=== PATIENT | female | born 1960 | race Caucasian/White ===

== ENCOUNTER 2017-06-28 13:55 | Emergency (ER) | payer SELFPAY ==
[2017-06-28] MEDS ORDERED: Adacel (T-DAP) 0.5 ML VIAL ONE (14:17)
--- NOTE | 2017-06-28 15:29 | CT ---
CT OF THE BRAIN WITHOUT CONTRAST: COMPARISON: 06/11/17. HISTORY: Laceration on the top of the head after falling down 5 stairs today at home. TECHNIQUE: Multiple contiguous axial images were obtained in a CT of the brain without contrast. FINDINGS: The brain is normal in morphology and attenuation without focal lesions or confluent areas of infarc tion. There is no evidence of hydrocephalus, intracranial hemorrhage, or extraaxial fluid collectio n. The calvarium and overlying soft tissues are unremarkable. The visualized paranasal sinuses and mas toid air cells are well aerated. IMPRESSION: No evidence of acute intracranial abnormality. POS: [facility]
== END 2017-06-28 15:10 | disposition home or self-care (01) ==
LOC: ERS 13:55
DX: S01.01XA Laceration without foreign body of scalp, initial encounter (principal); S80.12XA Contusion of left lower leg, initial encounter; F31.9 Bipolar disorder, unspecified; Z87.891 Personal history of nicotine dependence; Z79.899 Other long term (current) drug therapy; W10.9XXA Fall (on) (from) unspecified stairs and steps, initial encounter
CPT/HCPCS: 12001; 70450; 90471; 90715

== ENCOUNTER 2017-07-07 11:33 | Emergency (ER) | payer SELFPAY | END 2017-07-07 12:11 | disposition home or self-care (01) | LOC: ERS 11:33 | DX: S01.81XD Laceration without foreign body of other part of head, subsequent encounter (principal); F31.9 Bipolar disorder, unspecified; Z87.891 Personal history of nicotine dependence; Z79.899 Other long term (current) drug therapy; X58.XXXD Exposure to other specified factors, subsequent encounter ==

== ENCOUNTER 2019-03-18 08:32 | Outpatient (CLI) | payer OTHER ==
--- NOTE | 2019-03-18 09:31 | MRI ---
MRI cervical spine. HISTORY: Neck pain M54.2 Multiplanar multisequence noncontrast enhanced MRI images cervical spine obtained. C1-2: Unremarkable. C2-3: Unremarkable. C3-4: There is a broad-based disc osteophyte complex centrally compressing the thecal sac resulting i n mild lateral recess stenosis. There is moderate bilateral neural foraminal narrowing due to uncovertebral osteophyte hypertrophy. C4-5: Disc desiccation seen. There is a mild broad-based disc bulge resulting in mild central stenosi s. There is moderate severe right C4-5 and mild left C4-5 neural foraminal narrowing due to uncovertebral osteophyte hypertrophy. C5-6: Disc desiccation seen. There is broad-based disc osteophyte complex centrally compressing the t hecal sac resulting in moderate severe central and lateral recess stenosis. Moderate spinal cord compression seen. There is moderate severe left and moderate right-sided C5-6 neural foraminal narrow ing due to uncovertebral osteophyte hypertrophy. C6-7: Disc desiccation seen. There is a broad-based disc osteophyte complex compressing the thecal sa c resulting in moderate to severe degree of central and lateral recess stenosis. Minimal cord compression seen. There is a moderate severe bilateral neural foraminal narrowing seen. C7-T1: Unremarkable. IMPRESSION: multilevel mid and lower cervical spinal stenosis and neural foraminal narrowing as descr ibed above.
--- NOTE | 2019-03-18 09:45 | RAD ---
FOUR VIEWS LUMBAR SPINE: HISTORY: Lumbar radiculopathy. Low back pain with bilateral neuropathy. COMPARISON: None. TECHNIQUE: Weight-bearing AP, weight-bearing extension, weight-bearing flexion, and weight-bearing lateral views are submitted for interpretation. FINDINGS: There are 5 lumbar type vertebral bodies. Lumbar spine vertebral body height is maintained. There i s no fracture. In the neutral position, there is 6 mm of anterolisthesis of L4 upon L5. Upon flexion, there is 6 mm of anterolisthesis. Upon extension, there is 7 mm of anterolisthesis. In the neutral position, there is 5.5 mm of anterolisthesis of L5 upon S1. Upon flexion, there is 4.8 mm of anterolisthesis of L5 upon S1. Upon extension, there is 3.5 mm of anterolisthesis of L5 upon S1. Mild hypertrophic changes in the posterior elements at L4-L5 and at L5-S1. No spondylolysis. IMPRESSION: Grade 1 anterolisthesis of L4 upon L5 and L5 upon S1. Transcribed Date/Time: 03/18/2019 11:40 AM
--- NOTE | 2019-03-18 09:47 | RAD ---
4 views cervical spine. HISTORY: Neck pain. AP, lateral, flexion and extension views cervical spine obtained. Images demonstrate disc space height loss with anterior and posterior osteophytes at C5-6. Less sever e disease seen at C6-7. Findings compatible with changes of spondylosis. No evidence of antral retrolisthesis seen on flexion or extension views. IMPRESSION: C5-6 and C6-7 changes of spondylosis.
== END 2019-03-18 08:33 | disposition home or self-care (01) ==
LOC: BICMRI 08:32
PROVIDERS: ATTEND Neurological Surgery
DX: M54.2 Cervicalgia (principal); R25.1 Tremor, unspecified; M54.16 Radiculopathy, lumbar region; M47.812 Spondylosis without myelopathy or radiculopathy, cervical region; M48.02 Spinal stenosis, cervical region; M43.16 Spondylolisthesis, lumbar region; M43.17 Spondylolisthesis, lumbosacral region
CPT/HCPCS: 72050; 72110; 72141

== ENCOUNTER 2019-09-18 19:01 | Inpatient (IN) | payer MEDICARE ==
[2019-09-18] MEDS ORDERED: Ondansetron PF 4 MG/2 ML Vial ONE (19:17)
[2019-09-18] MEDS ORDERED: Morphine 4 MG/ML VIAL ONE (19:17)
[2019-09-18 19:47] LABS: Hemoglobin 12.9 g/dL (12.0-16.0); Mean Corpuscular HGB CONC 32.6 g/dL (32.0-36.0); Mean Corpuscular Hemoglobin 25.4 pg (27.0-31.0); Mean Corpuscular Volume 77.9 fL (78.0-98.0); Mean Platelet Volume 8.1 fL (7.4-10.4); Platelet Count 384 thou/uL (130-400); RBC Distribution Width 13.1 % (11.5-14.5); Red Blood Cell (RBC) Count 5.08 mill/uL (4.20-5.40); White Blood Cell (WBC) Count 16.8 thou/uL (4.8-10.8)
[2019-09-18 20:06] LABS: ALT (SGPT) 99 U/L (8-55); AST (SGOT) 130 U/L (5-34); Alkaline Phosphatase 214 U/L (40-110); Anion Gap 18 mmol/L (10-20); BUN (Urea Nitrogen) 14 mg/dL (9.8-20.1); Bilirubin, Total 0.6 mg/dL (0.2-1.2); Calc. Creatinine Clearance 0 mL/min (70-130); Calcium 9.7 mg/dL (7.8-10.44); Carbon Dioxide 23 mmol/L (22-29); Chloride 98 mmol/L (98-107); Estimated GFR-MDRD 73; Globulin 4.3 g/dL (2.4-3.5); Glucose 142 mg/dL (70-105); Lipase 8 U/L (8-78); Potassium 4.9 mmol/L (3.5-5.1); Protein, Total 8.3 g/dL (6.0-8.3); Sodium 134 mmol/L (136-145)
[2019-09-18 20:12] LABS: Band 9 % (5-11); Hypochromia SLIGHT = 6-15 cells (100X) (0-5/hpf); Lymphocytes 2 % (21-51); MDiff Complete? YES; Monocytes 4 % (0-10); Neutrophil 85 % (42-75); Platelet Morphology Comment Appears Adequate
[2019-09-18 21:39] LABS: Pregnancy Test - Urine (BHCG) Negative (Negative); Pregu Control Background? CLEAR/WHITE (CLR/WHITE); Pregu Control Bar Appear? YES (CONTROL BAR); Specific Gravity 1.036 (1.002-1.036)
[2019-09-18 21:42] LABS: Bacteria/HPF 4+ HPF (None Seen); Bilirubin Negative (Negative); Blood, Urine Negative (Negative); Clarity Turbid (Clear); Glucose, Urine (Dipstick) Normal (Negative); Leukocyte 500 Leu/uL (Negative); Mucous/LPF Rare LPF (<2+); Nitrite Negative (Negative); Protein, Urine (Dipstick) 300 mg/dL (Neg-Trace); RBC/HPF None Seen HPF (0-3); WBC/HPF 21-50 HPF (0-3)
--- NOTE | 2019-09-18 21:53 | CT ---
CT ABDOMEN AND PELVIS WITH CONTRAST: 09/18/19 INDICATION: Abdominal pain. Right lower quadrant pain. Nausea and vomiting. COMPARISON: No comparison studies. Lung bases clear. The liver is homogeneous with no mass. There is post cholecystectomy change. There is mild intra and extrahepatic biliary duct dilatation probably on the basis of cholecystectomy status. Spleen unremar kable. Postoperative changes are seen at the epigastric region involving stomach and lower esophagus. Patien t appears to be postcontrast bypass type procedure. There are fluid filled dilated loops of small bowel with dilated loops measuring up to 4.5 cm indicat ing small bowel obstructive process. There is mural thickening and luminal narrowing in what appears to represent the terminal ileum with inflammatory change seen at this location surrounding the terminal ileum. There is a mass-like densit y at this location which is not well delineated. The colon is decompressed. There is a defect in the left hemidiaphragm which is allowing colon and small bowel loops to herniate through this defect into the left chest. Aorta normal caliber. No adenopathy. IMPRESSION: 1. Significantly dilated fluid filled loops of small bowel. There is mural thickening and lumina l narrowing of the terminal ileum with inflammatory mass-like process at this location. 2. There is a defect in the left hemidiaphragm separate from the EG junction which results in he rniation of left colon and small bowel loops through this diaphragmatic hernia. 3. Postoperative changes involving the stomach with a probable gastric bypass type procedure. 4. Mild prominence of the intra and extrahepatic biliary ducts. Correlate with liver function te sts and bilirubin levels. POS: [facility]
[2019-09-18] MEDS ORDERED: Piperacillin/Tazobactam 4.5 GM VIAL ONE (22:13)
[2019-09-19 00:10] VITALS: BMI 36.2
[2019-09-19] MEDS ORDERED: Ondansetron PF 4 MG/2 ML Vial IVP PRN ×3 (00:55→18:09)
[2019-09-19] MEDS ORDERED: Acetaminophen 325 MG TAB PO PRN (00:55)
[2019-09-19] MEDS ORDERED: Ondansetron ODT 4 MG TAB SL PRN (00:55)
[2019-09-19] MEDS ORDERED: Ketorolac Tromethamine 30 MG/ML VIAL IVP PRN (03:15)
[2019-09-19] MEDS: Morphine 4 MG/ML VIAL SLOW IVP PRN ×2 (03:22→07:21)
[2019-09-19] MEDS: Sodium Chloride 0.9% 1,000 ML IV SCH ×4 (03:24→20:34)
[2019-09-19] MEDS ORDERED: Piperacillin/Tazobactam 4.5 GM in Sodium Chloride 0.9% 100 ML IVPB SCH (06:00)
[2019-09-19] MEDS ORDERED: FLU VACC QS2019-20(6MOS UP)/PF 60 MCG/0.5 ML SYRINGE IM ONE (09:00)
[2019-09-19] MEDS ORDERED: Dexamethasone 20 MG/5 ML VIAL ONE ×2 (10:36)
[2019-09-19] MEDS ORDERED: Lidocaine 1% PF 5 ML VIAL ONE (10:36)
[2019-09-19] MEDS ORDERED: Succinylcholine Chloride 20 MG/ML 10 ml SYRINGE FS ONE (10:36)
[2019-09-19] MEDS ORDERED: Rocuronium Bromide 10 MG/ML (10ML VIAL) ONE (10:36)
[2019-09-19] MEDS ORDERED: Ondansetron PF 4 MG/2 ML Vial ONE ×2 (10:36→18:11)
[2019-09-19] MEDS ORDERED: PROPOFOL 200 MG/20 ML VIAL ONE (10:36)
[2019-09-19] MEDS ORDERED: PHENYLEPHRINE-NS 100 MCG/ML 10 ML SYRINGE ONE (10:36)
[2019-09-19] MEDS ORDERED: Glycopyrrolate 0.2 MG/ML 5 ML SYRINGE ONE (10:36)
[2019-09-19] MEDS ORDERED: Bupivacaine HCl 0.5%/Epinephrine 1:200,000/PF 30 ml Vial ONE (10:36)
[2019-09-19] MEDS ORDERED: Morphine 2 MG/ML SYRINGE SLOW IVP PRN (11:24)
[2019-09-19] MEDS ORDERED: hydrALAZINE 20 MG/ML VIAL SLOW IVP PRN (11:24)
[2019-09-19] MEDS ORDERED: Morphine 4 MG/ML VIAL SLOW IVP PRN (11:24)
[2019-09-19] MEDS ORDERED: Lorazepam 2 MG/ML VIAL SLOW IVP PRN (11:24)
[2019-09-19] MEDS ORDERED: Ondansetron ODT 4 MG TAB PO PRN (11:24)
[2019-09-19] MEDS ORDERED: Sodium Chloride 0.9% 1,000 ML IV SCH (11:30)
[2019-09-19] MEDS ORDERED: Ketorolac Tromethamine 30 MG/ML VIAL IVP SCH (11:30)
[2019-09-19] MEDS ORDERED: Acetaminophen 1,000 MG in Premix Bag 1 BAG IVPB SCH ×2 (11:30→18:00)
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
[2019-09-19] MEDS ORDERED: Fentanyl 100 MCG/2 ML VIAL ONE ×2 (12:56→18:23)
[2019-09-19] MEDS ORDERED: Midazolam HCl 2 mg/ml Syrup 5 ml UD Cup ONE (12:56)
[2019-09-19] MEDS ORDERED: Midazolam HCl 2 mg/2 ml Vial ONE (12:57)
[2019-09-19] MEDS ORDERED: Dexamethasone 4 mg/ml Vial ONE (12:57)
[2019-09-19] MEDS ORDERED: Lidocaine 1% w/Epinephrine 1:100K 20 ML VIAL ONE (13:56)
[2019-09-19] MEDS ORDERED: Bupivacaine PF 0.5% 30 ML VIAL ONE (13:56)
[2019-09-19] MEDS ORDERED: Fentanyl 250 MCG/5 ML VIAL ONE (13:59)
[2019-09-19] MEDS ORDERED: Ketorolac Tromethamine 30 MG/ML VIAL ONE (13:59)
[2019-09-19] MEDS ORDERED: Piperacillin/Tazobactam 3.375 GM VIAL ONE (14:37)
[2019-09-19] MEDS: Multivitamins, Adult 10 ML, Folic Acid 1 MG, Thiamine HCl 100 MG in Dextrose 5 %-0.45 %... IV SCH (16:32)
[2019-09-19] MEDS: Ketorolac Tromethamine 30 MG/ML VIAL IVP SCH ×3 (16:33→23:49)
[2019-09-19] MEDS: Thiamine HCl 200 MG/2 ML VIAL SLOW IVP SCH (16:34)
[2019-09-19] MEDS ORDERED: Ondansetron HCl/PF 4 MG/2 ML Vial IVP PRN (17:38)
[2019-09-19] MEDS ORDERED: PACU-Morphine 4MG/ML VIAL SLOW IVP PRN (17:38)
[2019-09-19] MEDS ORDERED: Promethazine HCl 25 MG/ML VIAL IM PRN ×2 (17:38→18:09)
[2019-09-19] MEDS ORDERED: Morphine Sulfate 2 MG/ML SYRINGE SLOW IVP PRN (17:38)
[2019-09-19] MEDS ORDERED: Promethazine HCl 25 MG/ML VIAL SLOW IVP PRN (17:38)
[2019-09-19] MEDS ORDERED: HYDROmorphone 2 MG/ML VIAL SLOW IVP PRN (17:38)
[2019-09-19] MEDS ORDERED: Dextrose 5% in Water 1,000 ML IV PRN (18:01)
[2019-09-19] MEDS ORDERED: Insulin Regular 300 UNITS/3 ML VIAL SC PRN (18:01)
[2019-09-19] MEDS ORDERED: Dextrose 50% Abboject 50 ML SYRINGE SLOW IVP PRN (18:01)
[2019-09-19] MEDS ORDERED: fentaNYL Citrate/PF 2,000 MCG in Sodium Chloride 0.9% 60 ML IV PRN (18:09)
[2019-09-19] MEDS ORDERED: Naloxone HCl 0.4 mg/ml Vial IV PRN (18:09)
[2019-09-19] MEDS ORDERED: diphenhydrAMINE 50 MG/ML VIAL IM PRN (18:09)
[2019-09-19] MEDS ORDERED: diphenhydrAMINE 25 MG CAP PO PRN (18:09)
[2019-09-19] MEDS ORDERED: diphenhydrAMINE 50 MG/ML VIAL IVP PRN (18:09)
[2019-09-19] MEDS ORDERED: Zolpidem Tartrate 5 MG TAB PO PRN (18:09)
[2019-09-19] MEDS ORDERED: Communication Order-Pharmacy FS SCH (18:15)
--- NOTE | 2019-09-19 18:25 | RAD ---
PORTABLE CHEST: 09/19/19 HISTORY: Respiratory distress. COMPARISON: A CT of the abdomen which was performed yesterday. There is elevation of the left hemidiaphragm. Heart size is slightly enlarged. Right lung is clear. T here is somewhat increased perihilar lung markings on the left. I am not certain of what portion of t his is chronic in nature. IMPRESSION: Elevated left hemidiaphragm with some mild increased lung markings more in the perihilar distributio n on the left. This could represent some infiltrative change and could be chronic in nature. Follow-u p chest films would be suggested. POS: [facility]
[2019-09-19] MEDS: Piperacillin/Tazobactam 4.5 GM in Sodium Chloride 0.9% 100 ML IVPB SCH ×2 (19:00→23:58)
[2019-09-19] MEDS: Famotidine/PF 20 mg/2ml Vial SLOW IVP SCH (20:36)
[2019-09-19] MEDS: Acetaminophen 1,000 MG in Premix Bag 1 BAG IVPB SCH (23:51)
--- NOTE | 2019-09-19 23:51 | OP ---
DATE OF PROCEDURE: 09/19/2019 PREOPERATIVE DIAGNOSES: Bariatric surgery status, history of Stephanie-en-Y gastric bypass, history of open cholecystectomy. Small bowel obstruction with terminal ileum inflammatory phlegmon without drainable abscess, left diaphragmatic hernia, chronic. POSTOPERATIVE DIAGNOSES: Bariatric surgery status, history of Stephanie-en-Y gastric bypass, history of open cholecystectomy. Small bowel obstruction with terminal ileum inflammatory phlegmon without drainable abscess, left diaphragmatic hernia, chronic; with pericecal abscess. PROCEDURE: Laparoscopy, converted to laparotomy with adhesiolysis and right colectomy, and drainage of abscess and primary anastomosis, ileocolic, transverse; abdominal washout; #19 Gold JAZMYNE drain exiting in left lower quadrant trocar site (laparoscopy initially attempted, but converted into laparotomy). visualized the left diaphragmatic defect, I could palpate that but colon would not decompress due to thoracic adhesions, thus this portion will be left to later. ANESTHESIA: General anesthesia and TAP block. DESCRIPTION OF PROCEDURE: The patient was taken to the operating room where under general anesthesia, [place]ak catheter was placed. Abdomen was prepared with ChloraPrep and draped in routine fashion. Left lateral subcostal incision was made. Pneumoperitoneum to 15 mmHg was obtained with a Veress needle, replaced with a 5 port, laparoscope inserted. There were some filmy adhesions that I was able to negotiate around in the midline lower abdomen and was free of adhesions. Left lateral mid abdominal incision was made and left lower quadrant lateral incision was made and 5 port was placed. The laparoscope was moved to the left lower quadrant port site. The bowel was too distended to get any information, but it was appreciated she had a right lower quadrant mass effect in the area of the cecum and terminal ileum. I then tried to evaluate the left upper quadrant, but could not adequately evaluate this due to adhesions from prior surgery as she had a gastric bypass and a postoperative leak and a 6 to 8-week hospitalization 12 years ago. Colon was not dilated. Conversion to midline laparotomy undertaken from the mid upper abdomen to below the umbilicus, carried down the skin, subcutaneous tissue, midline fascia. The patient was morbidly obese with a thick fatty tissue layer. Midline fascia entered. I was then able to palpate the right lower quadrant mass in the area of the cecum. The bowel was run from the jejunojejunostomy from a Stephanie-en-Y gastric bypass proximally and the biliary limb and Stephanie limb were normal. Evaluation was carried out distally and bowel was otherwise normal except in the terminal ileum. Adhesions were taken down. The right colon was mobilized initially beginning inferiorly near the terminal ileum, then working towards the hepatic flexure and the right colon, mobilizing it . There was an inflammatory rind in the pericecal area and dissecting this, there was some clear yellow fluid that was evacuated and under this, thick yellow purulent material evacuated, cultured. Cecum dissected free, mobilized, there was inflammatory pericecal reaction. There was stool running out of the cecum, probably where the patient had had a ruptured appendicitis. Right colectomy undertaken, divided by dividing the terminal ileum and the proximal transverse colon with a JOSEPH stapler. Mesentery was taken down with the LigaSure and right colic vessels divided between clamps, ligated with 2-0 silk ties, colon resected, submitted to Pathology. Ileocolonic anastomosis performed with 2 fires of the JOSEPH stapler, creating anastomosis and closing the defect. The mesenteric defect was closed with 3-0 silk interrupted [id number] sutures. Abdominal cavity was thoroughly irrigated with saline solution. A drain was placed exiting the left lower quadrant port site, and secured with 3-0 nylon suture. Drain looped down the pelvis into the right pelvis where the abscess was. This had been evacuated. Small bowel was run, noted to be normal otherwise as previously stated. I then made an attempt to look in the left upper quadrant. I could feel the diaphragmatic defect far posteriorly high in the dome, but could not visualize it well. With some dissection and LigaSure traction, I was able to free adhesions in this area, but could not reduce the hernia as it was chronic and probably adherent within the thoracic cavity and will probably require a thoracic approach to reduce this and repair the defect. There was no evidence of colonic obstruction, so these efforts were abandoned. Sponge, instrument, and needle counts were correct. Irrigation evacuated. I then attempted to place Seprafilm on the left upper quadrant subdiaphragmatic area and between the viscera and the abdominal wall. There was not any significant omentum to be placed. Midline fascia was closed with continuous suture of #1 PDS from either end and then skin and subcutaneous tissues were irrigated and skin approximated with edna and MATY wound suction device applied. Drain was secured with 3-0 nylon suture and sterile dressing applied. The patient tolerated the procedure well. Job ID: [id number]
[2019-09-20] MEDS: Sodium Chloride 0.9% 1,000 ML IV SCH ×4 (00:05→18:15)
--- NOTE | 2019-09-20 00:14 | PRG ---
DATE OF SERVICE: 09/19/2019 SUBJECTIVE: The patient was seen this evening, lying in bed, and asleep. Trauma is following the patient this week and for Dr. Graff. She is postoperative day 2 and was admitted for an obstructive ileal mass. Nursing reported no acute events. OBJECTIVE: VITAL SIGNS: Temperature 98.6, pulse 80, respirations 16, oxygen saturation 97% on room air, blood pressure 107/67. GENERAL: Well-appearing middle-aged female, sitting up in bed, asleep, with no signs of acute distress. PULMONARY: Equal chest rise and fall. No signs of acute respiratory distress. ASSESSMENT: 1. Postop day 2 for obstructive ileal mass. 2. Diaphragmatic hernia, stable. 3. History of gastric bypass 12 years ago, depression, anxiety, and neuropathy. PLAN: Continue current n.p.o. status. Continue pain control. Anesthesiology has been consulted for pain management. Continue IV fluids. The patient has urine culture, demonstrating gram-negative rods. She is currently on Zosyn. We will continue those antibiotics at this time and follow up sensitivities. We are pending the results of an abdominal abscess culture. Continue walking program. Job ID: [id number] [facility]
[2019-09-20 05:15] LABS: #Lymphocytes 0.6 thou/uL (1.20-3.40); #Monocytes 0.6 thou/uL (0.11-0.59); #Neutrophils 10.1 thou/uL (1.40-6.50); %Basophils 0.3 % (0.0-1.0); %Lymphocytes 5.1 % (21.0-51.0); %Monocytes 5.7 % (0.0-10.0); %Neutrophils 88.9 % (42.0-75.0); Hemoglobin 10.2 g/dL (12.0-16.0); Mean Corpuscular Hemoglobin 25.7 pg (27.0-31.0); Mean Corpuscular Volume 80.1 fL (78.0-98.0); Mean Platelet Volume 7.5 fL (7.4-10.4); Platelet Count 292 thou/uL (130-400); RBC Distribution Width 12.9 % (11.5-14.5); Red Blood Cell (RBC) Count 3.98 mill/uL (4.20-5.40); White Blood Cell (WBC) Count 11.3 thou/uL (4.8-10.8)
[2019-09-20 05:33] LABS: ALT (SGPT) 155 U/L (8-55); AST (SGOT) 106 U/L (5-34); Albumin 2.9 g/dL (3.5-5.0); Alkaline Phosphatase 156 U/L (40-110); Anion Gap 10 mmol/L (10-20); BUN (Urea Nitrogen) 12 mg/dL (9.8-20.1); Bilirubin, Total 0.5 mg/dL (0.2-1.2); Calc. Creatinine Clearance 139 mL/min (70-130); Calcium 7.6 mg/dL (7.8-10.44); Carbon Dioxide 24 mmol/L (22-29); Chloride 110 mmol/L (98-107); Estimated GFR-MDRD 89; Globulin 2.5 g/dL (2.4-3.5); Glucose 136 mg/dL (70-105); Magnesium 1.7 mg/dL (1.6-2.6); Potassium 4.7 mmol/L (3.5-5.1); Protein, Total 5.4 g/dL (6.0-8.3); Sodium 139 mmol/L (136-145)
[2019-09-20 05:35] LABS: Hemoglobin A1c 5.3 % (4.0-6.0)
[2019-09-20 05:43] LABS: Phosphorus 3.5 mg/dL (2.3-4.7)
[2019-09-20] MEDS: Ketorolac Tromethamine 30 MG/ML VIAL IVP SCH ×3 (05:43→18:09)
[2019-09-20] MEDS: Acetaminophen 1,000 MG in Premix Bag 1 BAG IVPB SCH ×3 (05:46→18:09)
[2019-09-20] MEDS: Piperacillin/Tazobactam 4.5 GM in Sodium Chloride 0.9% 100 ML IVPB SCH ×3 (05:49→18:44)
[2019-09-20] MEDS: Famotidine/PF 20 mg/2ml Vial SLOW IVP SCH ×2 (09:01→22:00)
[2019-09-20] MEDS: Thiamine HCl 200 MG/2 ML VIAL SLOW IVP SCH (12:47)
--- NOTE | 2019-09-20 13:39 | PRG ---
DATE OF SERVICE: 09/20/2019 SUBJECTIVE: The patient remains on the surgical floor, awake, alert in hospital bed. The patient is postop day #1 status post laparoscopy converted to laparotomy, adhesiolysis, colectomy, drainage of abscess and primary anastomosis. The patient also had an abdominal washout and a left lower quadrant JAZMYNE drain placed. The patient reports that her pain is well controlled at this time. The patient is not passing any flatus and has not had a bowel movement. The patient continues to have a fentanyl TREE THINNER pump. The patient is n.p.o. with maintenance IV fluids. The patient is requesting her gabapentin be restarted as she is having tremors. OBJECTIVE: VITAL SIGNS: Temperature 98.3, pulse 84, respirations 16, SpO2 of 95% on room air, blood pressure 107/80. GENERAL: Well-appearing, middle-aged female, sitting up in bed, moderate tremors, no acute distress. PULMONARY: Equal chest rise and fall, no respiratory distress. Respirations even and unlabored. ABDOMEN: Soft, nontender, nondistended, abdominal dressing clean, dry, and intact, left JAZMYNE drain with 160 mL output overnight. The patient does have a MATY wound suction device in place. ASSESSMENT: 1. Postop day #1 status post obstructive ileal mass. 2. Diaphragmatic hernia, stable. 3. History of gastric bypass 12 years ago. 4. Depression, anxiety, neuropathy. PLAN: Continue supportive care. Continue n.p.o. status except for medications and sips of water. We will restart the patient's home gabapentin. We will continue the patient's IV antibiotics. We will continue to have patient ambulate frequently. The patient is pending return of bowel function. The patient was examined by Dr. Lynch during morning rounds. Job ID: [id number]
[2019-09-20] MEDS: Gabapentin 300 MG CAP PO SCH ×2 (13:44→22:03)
[2019-09-20] MEDS ORDERED: Sodium Chloride 0.9% 500 ML IV SCH (16:00)
[2019-09-20] MEDS: Multivitamins, Adult 10 ML, Folic Acid 1 MG, Thiamine HCl 100 MG in Dextrose 5 %-0.45 %... IV SCH ×2 (18:15→18:43)
--- NOTE | 2019-09-20 22:02 | PRG ---
DATE OF SERVICE: 09/20/2019 SUBJECTIVE: The patient was seen this evening, resting comfortably, and asleep by the time of my evaluation. Nursing reported no acute events. OBJECTIVE: VITAL SIGNS: Temperature 97.7, pulse 68, respirations 16, oxygen saturation 94% on room air, and blood pressure 95/65. GENERAL: Well-appearing middle-aged female, lying in bed with no signs of acute distress. PULMONARY: Equal chest rise and fall. No signs of acute respiratory distress. ASSESSMENT: 1. Postop day #1, status post open laparotomy, adhesiolysis, colectomy, drainage of abdominal abscess with primary anastomosis, and abdominal washout due to obstructive ileal mass. 2. Diaphragmatic hernia, stable. 3. Urinary tract infection, Escherichia coli. 4. History of gastric bypass 12 years ago, depression, anxiety, and neuropathy. PLAN: Continue to encourage the patient to ambulate and waiting for return of bowel function. Continue n.p.o. continue normal saline at 150 an hour. Continue fentanyl TRAFFIC ENGINEERING TECHNICIAN and Zosyn. We have restarted all of her home medications. Job ID: [id number]
[2019-09-21] MEDS: Ketorolac Tromethamine 30 MG/ML VIAL IVP SCH ×5 (00:12→23:11)
[2019-09-21] MEDS: Piperacillin/Tazobactam 4.5 GM in Sodium Chloride 0.9% 100 ML IVPB SCH ×5 (00:13→23:11)
[2019-09-21] MEDS: Sodium Chloride 0.9% 1,000 ML IV SCH ×3 (03:04→16:41)
[2019-09-21] MEDS: Gabapentin 300 MG CAP PO SCH ×3 (05:45→22:53)
[2019-09-21 06:25] LABS: Anion Gap 12 mmol/L (10-20); BUN (Urea Nitrogen) 13 mg/dL (9.8-20.1); Calc. Creatinine Clearance 137 mL/min (70-130); Calcium 7.9 mg/dL (7.8-10.44); Carbon Dioxide 23 mmol/L (22-29); Chloride 111 mmol/L (98-107); Estimated GFR-MDRD 87; Glucose 96 mg/dL (70-105); Phosphorus 2.5 mg/dL (2.3-4.7); Sodium 142 mmol/L (136-145)
[2019-09-21 07:24] LABS: Band 13 % (5-11); Hemoglobin 9.3 g/dL (12.0-16.0); Lymphocytes 20 % (21-51); MDiff Complete? YES; Mean Corpuscular HGB CONC 31.1 g/dL (32.0-36.0); Mean Corpuscular Hemoglobin 25.1 pg (27.0-31.0); Mean Corpuscular Volume 80.6 fL (78.0-98.0); Mean Platelet Volume 7.7 fL (7.4-10.4); Monocytes 3 % (0-10); Neutrophil 64 % (42-75); Platelet Count 275 thou/uL (130-400); RBC Distribution Width 12.9 % (11.5-14.5); Red Blood Cell (RBC) Count 3.69 mill/uL (4.20-5.40); White Blood Cell (WBC) Count 9.6 thou/uL (4.8-10.8)
[2019-09-21] MEDS: Aripiprazole 10 MG TAB PO SCH (09:38)
[2019-09-21] MEDS: FLUoxetine HCl 10 MG CAP PO SCH (09:38)
[2019-09-21] MEDS: Famotidine/PF 20 mg/2ml Vial SLOW IVP SCH ×2 (09:39→22:54)
[2019-09-21] MEDS ORDERED: Sodium Chloride 0.9% 500 ML IV SCH ×2 (10:00→16:15)
[2019-09-21] MEDS ORDERED: Acetaminophen 500 MG TAB PO SCH (11:30)
[2019-09-21] MEDS: Thiamine HCl 200 MG/2 ML VIAL SLOW IVP SCH (13:21)
--- NOTE | 2019-09-21 16:24 | PRG ---
DATE OF SERVICE: 09/21/2019 This is Elsa Sands NP dictating a report for Dr. Lynch. SUBJECTIVE: The patient remains on the surgical floor, awake, alert, in no distress. The patient is postop day #2, status post laparoscopy converted into a laparotomy adhesiolysis, colectomy, drainage of abscess, and primary anastomosis. The patient has had an abdominal washout and left lower quadrant JAZMYNE drain placed. The patient's pain is well controlled. The patient still is not passing any flatus or having any bowel movements. The patient's fentanyl ORDER CALLER pump continues. The patient remains n.p.o. with ice chips and sips of water with medications. The patient remains on IV fluids, maintenance IV fluids. The patient has had low urinary output. OBJECTIVE: VITAL SIGNS: Temperature 97.6, pulse 72, respirations 18, SpO2 of 96% on room air, and blood pressure 90/60. GENERAL: Middle-aged female, lying in hospital bed, PICC line currently being placed, moderate tremors, no respiratory distress. PULMONARY: Equal chest rise and fall, no respiratory distress, respirations are even, nonlabored. ABDOMEN: Soft, nontender, nondistended. Abdominal dressing is clean, dry, and intact. Left JAZMYNE drain with 190 mL output overnight. EXTREMITIES: Moves all extremities. Tremors in all extremities, which are chronic. LABORATORY DATA: WBC 9.6, RBC 3.69, hemoglobin 9.3, hematocrit 29.8, platelets 275, and 13 bands. Sodium 142, potassium 4.0, chloride 111, BUN 13, creatinine 0.69, estimated GFR 87, glucose 96, calcium 7.9, phosphorus 2.5, and magnesium 2.0. DIAGNOSTICS: There are no new diagnostics to review today. ASSESSMENT: 1. Postop day #2, status post obstructive ileal mass. 2. Diaphragmatic hernia, stable. 3. History of gastric bypass, 12 years ago. 4. History of depression, anxiety, neuropathy, and tremors. PLAN: Continue supportive care. Continue n.p.o. status except for sips of water with medications and ice chips until patient has return of bowel function. We will continue IV antibiotics. We will give the patient a normal saline bolus as the patient appears to be dry with decreased urine output. We will have patient ambulate more frequently. The patient was examined by Dr. Ohaju during morning rounds. The patient's plan was discussed with the patient who agrees. Job ID: [id number]
[2019-09-21] MEDS: Multivitamins, Adult 10 ML, Folic Acid 1 MG, Thiamine HCl 100 MG in Dextrose 5 %-0.45 %... IV SCH (18:06)
--- NOTE | 2019-09-22 01:05 | PRG ---
DATE OF SERVICE: 09/21/2019 SUBJECTIVE: The patient was seen this evening, sitting up in bed with no signs of acute distress. She reported her pain is well controlled and she had no acute events. She is still n.p.o. OBJECTIVE: VITAL SIGNS: Temperature 98.1, pulse 76, respirations 14, oxygen saturation 92% on room air, and blood pressure 87/57. GENERAL: Well-appearing middle-aged female, sitting up in bed with no signs of acute distress. PULMONARY: Equal chest rise and fall. No signs of acute respiratory distress. ASSESSMENT: 1. Postoperative day #3 status post adhesiolysis, colectomy, drainage of abscess and primary anastomosis due to obstructive ileal mass. 2. Diaphragmatic hernia, stable. 3. Urinary tract infection. 4. History of gastric bypass 12 years ago, depression, anxiety, and neuropathy. PLAN: Continue n.p.o. Continue current antibiotics. Continue physical therapy. We are waiting for return of bowel function. Job ID: [id number]
[2019-09-22 05:50] LABS: #Eosinphils 0.3 thou/uL (0.0-0.7); #Lymphocytes 1.8 thou/uL (1.20-3.40); #Monocytes 0.8 thou/uL (0.11-0.59); #Neutrophils 6.5 thou/uL (1.40-6.50); %Basophils 0.5 % (0.0-1.0); %Eosinophils 3.7 % (0.0-10.0); %Lymphocytes 19.2 % (21.0-51.0); %Monocytes 8.2 % (0.0-10.0); %Neutrophils 68.4 % (42.0-75.0); Hemoglobin 9.2 g/dL (12.0-16.0); Mean Corpuscular HGB CONC 30.8 g/dL (32.0-36.0); Mean Corpuscular Hemoglobin 24.8 pg (27.0-31.0); Mean Corpuscular Volume 80.6 fL (78.0-98.0); Mean Platelet Volume 7.6 fL (7.4-10.4); Platelet Count 296 thou/uL (130-400); RBC Distribution Width 13.3 % (11.5-14.5); Red Blood Cell (RBC) Count 3.69 mill/uL (4.20-5.40); White Blood Cell (WBC) Count 9.4 thou/uL (4.8-10.8)
[2019-09-22 06:03] LABS: Anion Gap 11 mmol/L (10-20); BUN (Urea Nitrogen) 11 mg/dL (9.8-20.1); Calc. Creatinine Clearance 148 mL/min (70-130); Calcium 7.8 mg/dL (7.8-10.44); Carbon Dioxide 23 mmol/L (22-29); Chloride 110 mmol/L (98-107); Estimated GFR-MDRD Greater than 90; Glucose 96 mg/dL (70-105); Magnesium 1.8 mg/dL (1.6-2.6); Phosphorus 2.7 mg/dL (2.3-4.7); Potassium 3.7 mmol/L (3.5-5.1); Sodium 140 mmol/L (136-145)
[2019-09-22] MEDS: Sodium Chloride 0.9% 1,000 ML IV SCH (06:57)
[2019-09-22] MEDS: Gabapentin 300 MG CAP PO SCH ×3 (06:57→21:05)
[2019-09-22] MEDS: Piperacillin/Tazobactam 4.5 GM in Sodium Chloride 0.9% 100 ML IVPB SCH ×4 (06:58→23:49)
[2019-09-22] MEDS: Ketorolac Tromethamine 30 MG/ML VIAL IVP SCH ×4 (06:58→23:48)
[2019-09-22] MEDS ORDERED: Multivitamins, Adult 10 ML, Folic Acid 1 MG, Thiamine HCl 100 MG in Dextrose 5 %-0.45 %... IV SCH ×2 (08:45→18:00)
[2019-09-22] MEDS: Aripiprazole 10 MG TAB PO SCH (09:04)
[2019-09-22] MEDS: Famotidine/PF 20 mg/2ml Vial SLOW IVP SCH (09:04)
[2019-09-22] MEDS: FLUoxetine HCl 10 MG CAP PO SCH (09:04)
[2019-09-22] MEDS ORDERED: Acetaminophen 500 MG TAB PO PRN (10:52)
[2019-09-22] MEDS ORDERED: traMADol HCl 50 MG TAB PO PRN (10:52)
--- NOTE | 2019-09-22 11:11 | PRG ---
DATE OF SERVICE: 09/22/2019 SUBJECTIVE: Ms. Vitale is doing well today. She has had a bowel movement, passed flatus. She is still n.p.o. OBJECTIVE: VITAL SIGNS: Temperature 97.9 degrees, pulse 78, blood pressure 107/68. LUNGS: Clear to auscultation. CARDIAC: Regular rate and rhythm without murmur or gallop. ABDOMEN: Soft, nontender. Bowel sounds present. Wound looks good. MATY wound suction device was removed. Dressings removed from her edna. Drain is serosanguineous. Output 24 hours, 190 mL. LABORATORY DATA: Laboratories today; white count 9, hemoglobin 9. Basic metabolic profile normal. Pathology pending. ASSESSMENT AND PLAN: Doing well after right colectomy for probably perforated appendicitis. Her drain will be removed. Her diet advanced. I anticipate discharge home tomorrow. Job ID: [id number]
[2019-09-22] MEDS: traMADol HCl 50 MG TAB PO PRN (12:58)
[2019-09-22] MEDS: Thiamine HCl 200 MG/2 ML VIAL SLOW IVP SCH (12:59)
[2019-09-23] MEDS: Ketorolac Tromethamine 30 MG/ML VIAL IVP SCH ×4 (05:22→23:01)
[2019-09-23] MEDS: Gabapentin 300 MG CAP PO SCH ×3 (05:23→21:18)
[2019-09-23] MEDS ORDERED: Sodium Chloride 0.9% 1,000 ML IV SCH (06:45)
[2019-09-23] MEDS: Amoxicillin/Potassium Clav 500 MG TAB PO SCH ×2 (08:34→21:18)
[2019-09-23] MEDS: FLUoxetine HCl 10 MG CAP PO SCH (08:34)
[2019-09-23] MEDS: Aripiprazole 10 MG TAB PO SCH (08:34)
[2019-09-23] MEDS: Polyethylene Glycol 3350 17 GM Packet PO SCH (08:35)
[2019-09-23] MEDS ORDERED: Sodium Chloride 0.9% 500 ML IV SCH (09:15)
--- NOTE | 2019-09-23 09:36 | PRG ---
DATE OF SERVICE: 09/23/2019 SUBJECTIVE: The patient reports having some nausea. She is not taking much p.o. She is passing flatus. OBJECTIVE: VITAL SIGNS: Temperature is 98, pulse 80, blood pressure 114/79. GENERAL: She is awake, alert. The incision looks good. There is no evidence of infection. : Urine output was little bit low, 250 yesterday, drainage is 250 as well. ASSESSMENT: Little bit dehydrated. PLAN: Normal saline fluid bolus. Encourage p.o. fluids. Home when she is able to tolerate p.o. well. Job ID: [id number]
[2019-09-23] MEDS: Thiamine HCl 200 MG/2 ML VIAL SLOW IVP SCH (11:49)
[2019-09-23] MEDS: traMADol HCl 50 MG TAB PO PRN (17:57)
[2019-09-24] MEDS: Ketorolac Tromethamine 30 MG/ML VIAL IVP SCH ×2 (05:02→12:35)
[2019-09-24] MEDS: Gabapentin 300 MG CAP PO SCH (05:02)
[2019-09-24 07:42] VITALS: TEMP 98.4
[2019-09-24] MEDS: traMADol HCl 50 MG TAB PO PRN (08:09)
[2019-09-24] MEDS: Aripiprazole 10 MG TAB PO SCH (08:10)
[2019-09-24] MEDS: Amoxicillin/Potassium Clav 500 MG TAB PO SCH (08:10)
[2019-09-24] MEDS: FLUoxetine HCl 10 MG CAP PO SCH (08:10)
[2019-09-24 11:27] VITALS: BP 132/83
[2019-09-24] MEDS: Polyethylene Glycol 3350 17 GM Packet PO SCH (12:35)
--- NOTE | 2019-09-25 08:06 | DIS ---
DATE OF ADMISSION: 09/18/2019 DATE OF DISCHARGE: 09/24/2019 DISCHARGE DIAGNOSES: Small bowel obstruction, terminal ileum inflammatory phlegmon, diaphragmatic hernia. PROCEDURES DURING ADMISSION: Lysis of adhesions, right hemicolectomy, drainage of abscess. HOSPITAL COURSE: The patient was admitted. An attempt was made at laparoscopy converted to open procedure. She was found to have an abscess. This was resected. Postoperatively, she has done well. She is afebrile. She is tolerating a regular diet. Bowels are functioning well. She is discharged home on Augmentin and Ultram. She will follow up with Dr. Graff in 1 week. Job ID: [id number]
== END 2019-09-24 13:31 | disposition home or self-care (01) | DRG 329 ==
LOC: ERS 19:01 → SJJU 22:20
PROVIDERS: ADMIT Specialist; ATTEND Specialist
PROC: 0DJD4ZZ Inspection of Lower Intestinal Tract, Percutaneous Endoscopic Approach (ICD-10-PCS; principal; 2019-09-19)
PROC: 0DTF0ZZ Resection of Right Large Intestine, Open Approach (ICD-10-PCS; 2019-09-19)
PROC: 0DNB0ZZ Release Ileum, Open Approach (ICD-10-PCS; 2019-09-19)
DX: K56.699 Other intestinal obstruction unspecified as to partial versus complete obstruction (principal); K35.33 Acute appendicitis with perforation, localized peritonitis, and gangrene, with abscess; N39.0 Urinary tract infection, site not specified; Z90.49 Acquired absence of other specified parts of digestive tract; Z88.8 Allergy status to other drugs, medicaments and biological substances; Z79.899 Other long term (current) drug therapy; F32.9 Major depressive disorder, single episode, unspecified; F41.9 Anxiety disorder, unspecified; E11.9 Type 2 diabetes mellitus without complications; G47.00 Insomnia, unspecified; K44.9 Diaphragmatic hernia without obstruction or gangrene; E66.01 Morbid (severe) obesity due to excess calories; Z68.36 Body mass index [BMI] 36.0-36.9, adult; Z98.84 Bariatric surgery status; Z53.31 Laparoscopic surgical procedure converted to open procedure; E86.0 Dehydration; B96.20 Unspecified Escherichia coli [E. coli] as the cause of diseases classified elsewhere
CPT/HCPCS: 36415; 36416; 71045; 74177; 80048; 80053; 81003; 81015; 81025; 83036; 83690; 83735; 84100; 85007; 85025; 85027; 87070; 87077; 87086; 87186; 87205; 88309; 94640; 96361; 96365; 96375; J0131; J0670; J1100; J1885; J2001; J2250; J2270; J2405; J2543; J2704; J3010; J3411; J3490; J7042; J7620; Q0162; S0020; S0028

== ENCOUNTER 2019-10-29 07:44 | Day surgery (SDC) | payer MEDICARE ==
[2019-10-28 10:04] VITALS: BMI 34.4
[2019-10-29] MEDS ORDERED: Lidocaine 2% w/Epinephrine 1:200K 20 ML VIAL ONE (08:07)
[2019-10-29] MEDS ORDERED: Bupivacaine PF 0.5% 30 ML VIAL ONE (08:07)
[2019-10-29] MEDS ORDERED: PROPOFOL 40 ML ONE (09:22)
[2019-10-29] MEDS ORDERED: Fentanyl 100 MCG/2 ML VIAL ONE (09:22)
[2019-10-29] MEDS ORDERED: Succinylcholine Chloride 20 MG/ML 10 ml SYRINGE FS ONE (09:44)
--- NOTE | 2019-10-29 10:27 | RAD ---
RADIOGRAPH CHEST 1 VIEW: DATE: 10/29/2019 HISTORY: Status post MediPort placement in 58-year-old female. COMPARISON: 09/19/2019 FINDINGS: There are no airspace densities, pulmonary edema, pneumothorax, or cardiomegaly. The lateral costophr enic angles are sharp. There is a new right subclavian vascular access port with distal tip of catheter overlying SVC. The left hemidiaphragm is less elevated now than previously, and the subsegme ntal atelectasis at the left base has cleared. Gas-filled portion of alimentary canal is again noted in the retrocardiac portion of the left medial thoracic base. IMPRESSION: 1. No acute cardiopulmonary findings. 2. Interval placement of right subclavian implantable vascular access port without pneumothorax. 3. Small left-sided diaphragmatic hernia.
--- NOTE | 2019-10-29 11:01 | OP ---
DATE OF PROCEDURE: 10/29/2019 PREOPERATIVE DIAGNOSES: 1. Colon cancer status post right colectomy. 2. Need of antineoplastic chemotherapy access. POSTOPERATIVE DIAGNOSES: 1. Colon cancer status post right colectomy. 2. Need of antineoplastic chemotherapy access. PROCEDURE PERFORMED: Right subclavian vein low-profile PowerPort. ANESTHESIA: Intravenous sedation and local with 0.5% Marcaine with epinephrine 30 mL mixed with 2% Xylocaine 20 mL. Fluoroscopy used. DESCRIPTION OF PROCEDURE: The patient was taken to the operating room, where in supine position under intravenous sedation, neck and chest were prepared with ChloraPrep and draped in routine fashion. Local anesthetic was infiltrated in the skin and subcutaneous tissue about the operative site. Right infraclavicular approach used to cannulate the right subclavian vein. J-wire threaded, trocar catheter removed. Skin site was enlarged sharply and subcutaneous pocket was created with blunt and sharp dissection to accommodate the MediPort. Dilator and Peel-Away sheath placed with J-wire into the superior vena cava. Dilator and J-wire were removed. Catheter placed with the Peel-Away sheath. Peel-Away sheath removed. The catheter tip was placed in optimal position in the superior vena cava, tailored to length, connected to the MediPort, secured in the pocket with 2 interrupted sutures of 3-0 Prolene. Subcutaneous tissue was approximated with 3-0 Monocryl, skin with subdermal 4-0 Monocryl and Coburn glue applied. The Romano needle accessed the MediPort, aspirating blood, flushing with heparinized saline solution. Final fluoroscopic images revealed good line and catheter placement. Job ID: [id number]
[2019-10-29] MEDS ORDERED: HYDROcodone/Acetaminophen 5/325 mg Tablet ONE (11:11)
--- NOTE | 2019-10-30 07:22 | HP ---
HISTORY OF PRESENT ILLNESS: Juany Herzog is a 58-year-old female, who reports having had a colonoscopy 2 years ago complete. She; however, presented to the hospital on September 18 in the emergency room for 3 to 4 days of abdominal pain, nausea, and vomiting. She had a white count of 16,000. 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 That day, she was 218 pounds and today, she weighs 213 pounds. She attributes her weight gain to poor eating habits. The patient had a laparoscopy converted to a midline incision and a right hemicolectomy. Pathology revealing a cecal adenocarcinoma with immunohistochemistry analysis expressing MLH2, MSH2, MSH6, and PMS2 with a pathogenic mutation KRAS gene (G12D). No mutations identified BRAF, HRAS, NRAS genes. Invasive adenocarcinoma 3 cm tumor, high-grade dysplasia in a TVA. All margins negative. Ten nodes negative. T3 N0 M0. CEA level not available. During that presentation, the patient was noted by imaging CAT scan to have a diaphragmatic hernia left. During the operation, a small posterior defect in the left hemidiaphragm was palpated. The colon was noted to be herniate into the left chest. She is post cholecystectomy. On the CAT scan, it was noted a defect in the left hemidiaphragm posteriorly allowing colon small bowel loops herniate through the defect in the left chest. During the operation, I could palpate this, but it was difficult to evaluate due to the posterior nature and her body habitus, but; however, she has been having normal bowel movements. Postoperatively, she has seen Alejandra Aponte recommended. She has been referred to Dr. Menjivar for future consideration of her left diaphragmatic hernia, which will probably require a left transthoracic approach for repair. This is because of the chronicity of the herniation. I have been asked by Dr. Carpio to place a MediPort. Postoperatively, the patient developed a small wound infection, which was drained. This is granulating and the wound is less than a third centimeter now. She has done a good job of wound care. The patient will look at her calender and call me when she is ready to schedule her MediPort. She will be seeing Dr. Wing Menjivar today for future consideration of left diaphragmatic hernia repair. After that, she will need a followup colonoscopy. PAST SURGICAL HISTORY: Cholecystectomy in 1996, gastric bypass in 2001, breast reduction in 2000, and laparotomy adhesiolysis right colectomy on 09/19/2019. PAST MEDICAL HISTORY: Morbid obesity, history of gastric bypass, anemia, anxiety, and depression. SOCIAL HISTORY: Tobacco abuse in the past, none currently. Alcohol, none. The patient is disabled. She is . REVIEW OF SYSTEMS: Noncontributory except as noted above. PHYSICAL EXAMINATION: VITAL SIGNS: 213 pounds and 65 inches. 125/83, 80, and 97.2 degrees. HEAD, EARS, EYES, NOSE, AND THROAT: Unremarkable. LUNGS: Clear to auscultation. CARDIAC: Regular rate and rhythm without murmur or gallop. ABDOMEN: Soft, obese, and nontender. Upper midline wound granulating, very shallow antibiotic Band-Aid applied. EXTREMITIES: Unremarkable. ASSESSMENT AND PLAN: 1. T3 N0 M0 cecal colon cancer status post right hemicolectomy without evidence of disease radiologically. CEA level not obtained perioperatively. She is seeing Dr. Carpio. We will plan to place a MediPort to facilitate chemotherapy. Plan this as an outpatient, IV sedation, local anesthesia, low-profile MediPort. She understands risks, benefits, and consents. 2. Left diaphragmatic hernia with herniated colon contents with an incomplete colonoscopy in the past. After completion of chemotherapy, consideration for left diaphragm repair by Dr. Menjivar transthoracic left approach considering the chronicity. She will be seeing Dr. Menjivar today. 3. Morbid obesity, history of gastric bypass. 4. Open wound abdomen, healing. Job ID: [id number]
== END 2019-10-29 11:25 | disposition home or self-care (01) ==
LOC: SDC 07:44
PROVIDERS: ATTEND Specialist
PROC: 02HV33Z Insertion of Infusion Device into Superior Vena Cava, Percutaneous Approach (ICD-10-PCS; principal; 2019-10-29)
PROC: B518ZZA Fluoroscopy of Superior Vena Cava, Guidance (ICD-10-PCS; 2019-10-29)
DX: C18.9 Malignant neoplasm of colon, unspecified (principal); E66.01 Morbid (severe) obesity due to excess calories; F41.9 Anxiety disorder, unspecified; F32.9 Major depressive disorder, single episode, unspecified; D64.9 Anemia, unspecified; Z68.31 Body mass index [BMI] 31.0-31.9, adult; Z87.891 Personal history of nicotine dependence; Z98.84 Bariatric surgery status
CPT/HCPCS: 71045; C1788; J0690; J1642; J2704; J3010; S0020

== ENCOUNTER 2020-03-23 09:32 | Outpatient (CLI) | payer MEDICARE, OTHER ==
--- NOTE | 2020-03-23 10:35 | ULT ---
EXAM: Right lower extremity venous ultrasound HISTORY: Right lower extremity pain and edema for 2 weeks COMPARISON: None TECHNIQUE: Multiplanar grayscale and color Doppler images were obtained in a right lower extremity ve nous ultrasound. Spectral analysis of the Doppler waveforms were performed. FINDINGS: The common femoral vein, profunda femoral vein, superficial femoral vein, and popliteal vei n are normal in appearance without visible thrombus. These vessels demonstrate normal compression, flow, and augmentation. The posterior tibial vein and greater saphenous vein are patent without evidence of thrombus. IMPRESSION: No evidence of DVT.
== END 2020-03-23 09:33 | disposition home or self-care (01) ==
LOC: ULT 09:32
PROVIDERS: ATTEND Internal Medicine Hematology & Oncology
DX: M79.604 Pain in right leg (principal); R60.0 Localized edema; C18.0 Malignant neoplasm of cecum; D50.8 Other iron deficiency anemias

== ENCOUNTER 2020-05-27 10:15 | Inpatient (IN) | payer MEDICARE, OTHER ==
[2020-06-01 14:14] VITALS: BMI 35.6
[2020-06-04] MEDS ORDERED: Fentanyl 100 MCG/2 ML VIAL ONE ×3 (06:16→14:07)
[2020-06-04] MEDS ORDERED: Midazolam HCl 2 mg/2 ml Vial ONE (06:16)
[2020-06-04] MEDS ORDERED: Fentanyl 250 MCG/5 ML VIAL ONE (06:46)
[2020-06-04] MEDS ORDERED: Naloxone HCl 0.4 mg/ml Vial IV PRN (07:30)
[2020-06-04] MEDS ORDERED: diphenhydrAMINE 25 MG CAP PO PRN (07:30)
[2020-06-04] MEDS ORDERED: Ondansetron PF 4 MG/2 ML Vial IVP PRN ×2 (07:30→13:03)
[2020-06-04] MEDS ORDERED: diphenhydrAMINE 50 MG/ML VIAL IM PRN (07:30)
[2020-06-04] MEDS ORDERED: Promethazine HCl 25 MG SUPP PR PRN (07:30)
[2020-06-04] MEDS ORDERED: Promethazine HCl 25 MG/ML VIAL IM PRN ×2 (07:30→11:59)
[2020-06-04] MEDS ORDERED: Bupivacaine 0.25% 10 ML VIAL EPIDURAL PRN (07:30)
[2020-06-04] MEDS ORDERED: Hydrocerin (Eucerin) Cream 120 gm Jar TOP PRN (07:30)
[2020-06-04] MEDS ORDERED: traMADol HCl 50 MG TAB PO PRN ×2 (07:30)
[2020-06-04] MEDS ORDERED: Naloxone HCl 0.4 mg/ml Vial IVP PRN (07:30)
[2020-06-04] MEDS ORDERED: diphenhydrAMINE 50 MG/ML VIAL IVP PRN (07:30)
[2020-06-04] MEDS ORDERED: Acetaminophen 500 MG TAB PO PRN (07:31)
[2020-06-04] MEDS ORDERED: Lidocaine 1.5% w/Epi 1:200K 30 ML VIAL (Epid Use) ONE (09:21)
[2020-06-04] MEDS ORDERED: Vecuronium 10 MG VIAL ONE (09:21)
[2020-06-04] MEDS ORDERED: PROPOFOL 200 MG/20 ML VIAL ONE (09:21)
[2020-06-04] MEDS ORDERED: Lidocaine 1% PF 5 ML VIAL ONE (09:21)
[2020-06-04] MEDS ORDERED: Ketorolac Tromethamine 30 MG/ML VIAL ONE ×2 (09:21→13:25)
[2020-06-04] MEDS ORDERED: Ondansetron PF 4 MG/2 ML Vial ONE ×2 (09:21→13:27)
[2020-06-04] MEDS ORDERED: Glycopyrrolate 0.2 MG/ML 5 ML SYRINGE ONE (09:21)
[2020-06-04] MEDS ORDERED: Promethazine HCl 25 MG/ML VIAL SLOW IVP PRN (11:59)
[2020-06-04] MEDS ORDERED: Ondansetron HCl/PF 4 MG/2 ML Vial IVP PRN (11:59)
--- NOTE | 2020-06-04 12:18 | RAD ---
EXAM: CHEST ONE VIEW HISTORY: Post thoracotomy. COMPARISON: 10/29/2019 FINDINGS: Right-sided Mediport catheter remains in place. Cardiac silhouette is magnified by projection but sta ble in size. Pulmonary vasculature is within normal limits. Linear mild patchy densities are seen at each lung base probably attributable to atelectasis. Radiopaque catheters overlie the left lung ba se and medial aspect left mid chest likely related to thoracostomy tubes. No pneumothorax is seen. Minimal pleural-based density is seen at the lateral left chest in addition to slight blunting of the left lateral costophrenic angle which may represent minimal left pleural effusion. Subcutaneous emphysema seen along the left chest. A tubular gas density overlies the mediastinum which likely repr esents gas within the esophagus. No other interval change. IMPRESSION: 1. Left-sided thoracostomy tubes in place without evidence of a pneumothorax. 2. Bibasilar atelectasis with suggestion of minimal left pleural effusion.
[2020-06-04] MEDS ORDERED: Promethazine HCl 25 MG/ML VIAL ONE (12:19)
--- NOTE | 2020-06-04 15:43 | OP ---
DATE OF PROCEDURE: 06/04/2020 PREOPERATIVE DIAGNOSIS: Left incarcerated diaphragmatic hernia. POSTOPERATIVE DIAGNOSIS: Left incarcerated diaphragmatic hernia. PROCEDURE PERFORMED: Left thoracotomy with reduction and primary repair of diaphragmatic hernia. ANESTHESIA: General endotracheal. ESTIMATED BLOOD LOSS: Less than 100. DRAINS: 24-Upper Sorbian Jose Manuel drains x2. SPECIMENS: None. DESCRIPTION OF PROCEDURE: After consent was obtained, the patient was brought to the operating room and placed in supine position on the operating table. Appropriate central line and monitors were placed and general endotracheal anesthesia was induced. The patient was placed in the right lateral decubitus position and joints were appropriately padded. SCDs were used. A long left thoracotomy incision was made. Dissection to the latissimus and serratus was obtained with electrocautery. Approximately the 5th interspace was entered and the ribs spread. The lung was adherent to the chest wall and diaphragm. I spent a long time taking down adhesions until I could identify the hernia posteromedially. Once the hernia was identified, the edges were then identified and the hernia sac taken down to allow for reduction of the hernia contents. Hernia contents were completely reduced back into the abdomen. The defect in the diaphragm was only about 3 cm long and easily reapproximated back together. There was a fibrous edge to the defect. The defect was reapproximated with interrupted 2-0 Prolene [id number] sutures. Three total were placed with good rehab position of the diaphragm under no tension. Two 24-Upper Sorbian Jose Manuel drains were placed. The chest was copiously irrigated. Lung was re-expanded and filled the chest nicely. Ribs were reapproximated with #1 Vicryl. Wounds were then irrigated, closed in layers and Dermabond applied to the skin. The patient was awakened, extubated, and transferred to the recovery room in stable condition. Needle, sponge, and instrument counts were all reported as correct at the end of the procedure. Job ID: [id number]
[2020-06-04] MEDS: Gabapentin 300 MG CAP PO SCH ×2 (18:00→20:58)
[2020-06-04] MEDS: Ketorolac Tromethamine 30 MG/ML VIAL IVP SCH ×2 (18:00→18:01)
[2020-06-04] MEDS: Sodium Chloride 0.9% 1,000 ML IV SCH ×2 (18:01→23:56)
[2020-06-04] MEDS: CEFAZOLIN 2 GM in Premix Bag 1 BAG IVPB SCH (18:03)
[2020-06-04] MEDS: HYDROcodone/Acetaminophen 5/325 mg Tablet PO PRN (21:00)
[2020-06-04] MEDS: fentaNYL Citrate/PF 500 MCG, Bupivacaine 10 ML in Sodium Chloride 0.9% 80 ML EPIDURAL SCH (22:00)
[2020-06-05] MEDS: CEFAZOLIN 2 GM in Premix Bag 1 BAG IVPB SCH ×2 (00:34→08:47)
[2020-06-05] MEDS: Ketorolac Tromethamine 30 MG/ML VIAL IVP SCH ×5 (00:35→23:52)
[2020-06-05 03:57] LABS: #Eosinphils 0.1 thou/uL (0.0-0.7); #Lymphocytes 1.5 thou/uL (1.20-3.40); #Monocytes 0.6 thou/uL (0.11-0.59); #Neutrophils 5.7 thou/uL (1.40-6.50); %Basophils 0.5 % (0.0-1.0); %Eosinophils 0.8 % (0.0-10.0); %Lymphocytes 18.4 % (21.0-51.0); %Monocytes 7.8 % (0.0-10.0); %Neutrophils 72.5 % (42.0-75.0); Hemoglobin 12.2 g/dL (12.0-16.0); Mean Corpuscular HGB CONC 31.4 g/dL (32.0-36.0); Mean Corpuscular Hemoglobin 29.5 pg (27.0-31.0); Mean Corpuscular Volume 93.9 fL (78.0-98.0); Mean Platelet Volume 7.8 fL (7.4-10.4); Platelet Count 237 thou/uL (130-400); RBC Distribution Width 13.4 % (11.5-14.5); Red Blood Cell (RBC) Count 4.14 mill/uL (4.20-5.40); White Blood Cell (WBC) Count 7.9 thou/uL (4.8-10.8)
[2020-06-05 04:22] LABS: Anion Gap 10 mmol/L (10-20); BUN (Urea Nitrogen) 10 mg/dL (9.8-20.1); Calc. Creatinine Clearance 143 mL/min (70-130); Calcium 7.7 mg/dL (7.8-10.44); Carbon Dioxide 27 mmol/L (22-29); Chloride 107 mmol/L (98-107); Estimated GFR-MDRD Greater than 90; Glucose 96 mg/dL (70-105); Potassium 3.9 mmol/L (3.5-5.1); Sodium 140 mmol/L (136-145)
[2020-06-05] MEDS: Sodium Chloride 0.9% 1,000 ML IV SCH ×2 (05:30→19:00)
[2020-06-05] MEDS: Gabapentin 300 MG CAP PO SCH ×3 (05:34→21:05)
[2020-06-05] MEDS: FLUoxetine HCl 10 MG CAP PO SCH (08:47)
--- NOTE | 2020-06-05 09:26 | RAD ---
PORTABLE CHEST 1 VIEW: DATE: 06/05/2020. TIME: 4:16 AM. HISTORY: Status post thoracotomy. COMPARISON: Previous day. FINDINGS/IMPRESSION: A right-sided Port-A-Cath and left-sided thoracotomy tubes remain in place. No definite pneumothorax is seen. Bibasilar atelectatic changes are noted with small bilateral pleural effusions. POS: OFF
[2020-06-05] MEDS: HYDROcodone/Acetaminophen 5/325 mg Tablet PO PRN ×2 (10:34→15:56)
[2020-06-05] MEDS: fentaNYL Citrate/PF 500 MCG, Bupivacaine 10 ML in Sodium Chloride 0.9% 80 ML EPIDURAL SCH (10:42)
[2020-06-06] MEDS: fentaNYL Citrate/PF 500 MCG, Bupivacaine 10 ML in Sodium Chloride 0.9% 80 ML EPIDURAL SCH ×2 (00:33→16:41)
[2020-06-06] MEDS: Sodium Chloride 0.9% 1,000 ML IV SCH ×2 (03:12→14:52)
[2020-06-06] MEDS: HYDROcodone/Acetaminophen 5/325 mg Tablet PO PRN ×3 (03:29→21:26)
[2020-06-06] MEDS: Gabapentin 300 MG CAP PO SCH ×3 (06:37→21:26)
[2020-06-06] MEDS: Ketorolac Tromethamine 30 MG/ML VIAL IVP SCH (06:38)
[2020-06-06] MEDS: FLUoxetine HCl 10 MG CAP PO SCH (09:57)
--- NOTE | 2020-06-06 11:16 | RAD ---
CHEST 1 VIEW: HISTORY: Thoracotomy. COMPARISON: Radiograph of prior day. FINDINGS: The port catheter is similar. Heart size is similar. Multiple wires and catheters project over the chest. Prevertebral left-sided thoracostomy drains. No definite pneumothorax is appreciated. Defect in the lateral left 5th rib. IMPRESSION: Similar examination of the chest without new complication. POS: HOME
[2020-06-07] MEDS: Sodium Chloride 0.9% 1,000 ML IV SCH ×2 (01:00→06:34)
[2020-06-07] MEDS: Gabapentin 300 MG CAP PO SCH ×3 (06:21→21:14)
[2020-06-07] MEDS: FLUoxetine HCl 10 MG CAP PO SCH (09:25)
[2020-06-07] MEDS: HYDROcodone/Acetaminophen 5/325 mg Tablet PO PRN ×2 (09:25→21:14)
[2020-06-07] MEDS: Zolpidem Tartrate 5 MG TAB PO PRN (21:16)
[2020-06-08] MEDS: Gabapentin 300 MG CAP PO SCH ×3 (05:48→20:48)
[2020-06-08] MEDS: HYDROcodone/Acetaminophen 5/325 mg Tablet PO PRN ×2 (08:47→13:24)
[2020-06-08] MEDS: FLUoxetine HCl 10 MG CAP PO SCH (08:48)
[2020-06-08] MEDS: Zolpidem Tartrate 5 MG TAB PO PRN (20:48)
[2020-06-09] MEDS: HYDROcodone/Acetaminophen 5/325 mg Tablet PO PRN ×2 (01:55→07:48)
[2020-06-09] MEDS: Gabapentin 300 MG CAP PO SCH ×2 (05:23→13:46)
--- NOTE | 2020-06-09 07:22 | DIS ---
DATE OF ADMISSION: 06/04/2020 DATE OF DISCHARGE: 06/09/2020 DIAGNOSIS: Left diaphragmatic hernia. PROCEDURE: Thoracotomy with repair of left diaphragmatic hernia. DESCRIPTION OF HOSPITAL STAY: Ms. Iam Herzog was brought in for an elective diaphragm repair. She was found to have a small rent in the diaphragm with a large amount of bowel, which had herniated into the chest. This was all reduced and the diaphragm primarily repaired. Postoperatively, she has done well. Her chest tubes were discontinued two days ago. She has been up and mobile. She is being discharged to home in good condition and follow up with me in 2 weeks. DISCHARGE MEDICATIONS: Unchanged. Job ID: [id number]
[2020-06-09] MEDS: FLUoxetine HCl 10 MG CAP PO SCH (07:48)
[2020-06-09 11:14] VITALS: TEMP 99.2
[2020-06-09 12:21] VITALS: BP 99/58
--- NOTE | 2020-06-10 07:01 | PQF ---
Dear :Wing Menjivar Date: 06/10/20 Please exercise your independent, professional judgment in responding to the clarification form. Clinical indicators are provided on the bottom of this form for your review Can you please further clarify the diagnosis of the patient being monitored? Please check appropriate box(es): [ ] Pleural effusion [ ] Atelectasis [ ] Not clinically significant radiological findings [ ] Other diagnosis please specify s/p thoracotomy with diaphragmatic hernia repair [ ] Unable to determine Physician Signature: Date/Time: For continuity of documentation, please document condition throughout progress notes and discharge summary. Thank You. To be completed by CDI/Coding staff for physician review: Present Clinical Indicators - Signs / Symptoms / Labs Results and Location in Medical Record [ x ] Bibasilar atelectasis with suggestion of minimal left pleural effusion Chest X ray 06/04 [ x ] Bibasilar atelectatic changes are noted with small bilateral pleural effusion Chest X ray 06/05 [ x ] Here chest tubes were discontinued 2 days ago DS pg.1 Present Risk Factors Results and Location in Medical Record [ x ] 59 years old DS pg.1 [ x ] Diaphragmatic hernia DS pg.1 [ x ] Obesity Anesthesia 06/04 [ x ] Former Smoker Anesthesia 06/04 Present Treatments Results and Location in Medical Record [ x ] Chest X ray 06/14 [ x ] Incentive Spirometry Patient care 06/08 [ x ] IV Fluids MAR CDS/Slasher Tender Signature: Carlos Sullivan Phone #: ext [phone] Date 06/10/20 This is a permanent part of the Medical Record [facility]
== END 2020-06-09 14:50 | disposition home or self-care (01) | DRG 328 ==
LOC: SURG A 06-04 05:53 → IMCU/EMU 06-04 15:00 → 2NO 06-07 13:21
PROVIDERS: ADMIT Thoracic Surgery (Cardiothoracic Vascular Surgery); ATTEND Thoracic Surgery (Cardiothoracic Vascular Surgery)
PROC: 0BQT0ZZ Repair Diaphragm, Open Approach (ICD-10-PCS; principal; 2020-06-04)
DX: K44.0 Diaphragmatic hernia with obstruction, without gangrene (principal); G47.30 Sleep apnea, unspecified; E66.9 Obesity, unspecified; F32.9 Major depressive disorder, single episode, unspecified; Z87.891 Personal history of nicotine dependence; Z68.36 Body mass index [BMI] 36.0-36.9, adult
CPT/HCPCS: 71045; 80048; 85025; 86850; 86900; 86901; J0690; J1642; J1885; J2001; J2250; J2405; J2550; J2704; J3010; J3490

== ENCOUNTER 2020-06-24 13:50 | Outpatient (CLI) | payer MEDICARE, OTHER ==
--- NOTE | 2020-06-24 14:25 | RAD ---
EXAM: Chest 2 views: HISTORY: Diaphragmatic hernia COMPARISON: 06/06/2020 FINDINGS: There is a normal-sized cardiomediastinal silhouette. The Mediport is unchanged in position. Opacit y in the left lung base likely represents a pleural effusion. Degenerative changes are seen in the spine. IMPRESSION: Small left pleural effusion.
== END 2020-06-24 13:51 | disposition home or self-care (01) ==
LOC: RAD 13:50
PROVIDERS: ATTEND Thoracic Surgery (Cardiothoracic Vascular Surgery)
DX: K44.9 Diaphragmatic hernia without obstruction or gangrene (principal); J90 Pleural effusion, not elsewhere classified
CPT/HCPCS: 71046

== ENCOUNTER 2020-11-15 09:24 | Inpatient (IN) | payer MEDICARE ==
[2020-11-15] MEDS ORDERED: PROPOFOL 200 MG/20 ML VIAL ONE (14:33)
[2020-11-15] MEDS ORDERED: Ondansetron PF 4 MG/2 ML Vial ONE (14:33)
[2020-11-15] MEDS ORDERED: PHENYLEPHRINE-NS 100 MCG/ML 10 ML SYRINGE ONE (14:33)
[2020-11-15] MEDS ORDERED: Lidocaine 1% PF 5 ML VIAL ONE (14:33)
[2020-11-15] MEDS ORDERED: Dexamethasone 20 MG/5 ML VIAL ONE (14:33)
[2020-11-15] MEDS ORDERED: Rocuronium Bromide 10 MG/ML (10ML VIAL) ONE (14:33)
[2020-11-15] MEDS ORDERED: Glycopyrrolate 0.2 MG/ML 5 ML SYRINGE ONE (14:33)
[2020-11-15] MEDS ORDERED: Promethazine HCl 25 MG/ML VIAL SLOW IVP PRN (15:13)
[2020-11-15] MEDS ORDERED: PACU-Morphine 4MG/ML VIAL SLOW IVP PRN (15:13)
[2020-11-15] MEDS ORDERED: Fentanyl 100 MCG/2 ML VIAL ONE ×2 (15:42→16:20)
[2020-11-15 15:47] LABS: SARS-CoV-2 NAA Rapid Test Not Detected (NotDetected)
--- NOTE | 2020-11-15 15:58 | OP ---
DATE OF PROCEDURE: 11/15/2020 PREOPERATIVE DIAGNOSES: 1. Left comminuted tibial shaft fracture. 2. Left segmental fibular fracture. POSTOPERATIVE DIAGNOSES: 1. Left comminuted tibial shaft fracture. 2. Left segmental fibular fracture. PROCEDURE PERFORMED: 1. Intramedullary nail stabilization, left tibia. 2. Closed treatment of left fibula fracture. ANESTHESIA: General. TARIFF SUPERVISOR: MOE Jane ESTIMATED BLOOD LOSS: 100 mL. IMPLANTS: Synthes System was used with a 315 x 9 mm tibial nail with 4 Crosslock screws. COMPLICATIONS: None. DRAINS: None. SPECIMEN: None. OUTCOME: Satisfactory. INDICATIONS FOR PROCEDURE: The patient is a pleasant 59-year-old lady, status post ground level fall sustaining a comminuted distal 3rd left tibial shaft fracture as well as segmental fibula fracture. After discussion with the patient including risks and benefits, we decided to proceed with intramedullary nail stabilization of the tibia, nonsurgical management of the fibula fractures. Informed consent has been obtained. I believe all questions answered. DESCRIPTION OF PROCEDURE: The patient was brought to the operating room and a time-out performed followed by induction of general anesthesia. Next, she was positioned supine on the fracture table with the injured extremity draped over a bolster with traction applied and the unaffected limb just held in extension on a support. Next, a sterile prep and drape was performed of the left lower extremity. A midline anterior knee incision was made over the patellar tendon and patella after skin was sharply incised, dissection was carried down bluntly to the underlying paratenon. This was incised in line with the skin incision and reflected medially and laterally. Next, moving to the medial aspect of the patellar tendon, dissection was carried down bluntly to the anterior portion of the proximal tibial plateau. Next, a threaded guidewire was passed from this cortex into the intramedullary canal of the tibia as checked under C-arm guidance. A reamer was then passed over this threaded guidewire. A ball-tipped guidewire was then passed down the shaft of the tibia while I held reduction of the fracture, my respiratory equipment assistant passed the ball-tipped guidewire across the fracture into the distal tibial metaphysis. Next, I continued to hold reduction of the fracture while my respiratory equipment assistant progressively reamed the intramedullary canal starting at 8.5 mm and continuing up to 10 mm. Cortical chatter was encountered at 9.5 mm. Once my respiratory equipment assistant fully reamed the intramedullary canal, the 9 x 315 mm tibial nail was passed over the ball-tipped guidewire, delivering it down the shaft of the tibia across the fracture in the distal tibial metaphysis. Next, under C-arm guidance, two small stab wounds were made distally and freehand cross locking was performed without difficulty. This was then followed by placement of 2 proximal cross-lock screws by my respiratory equipment assistant from the opposite side of the table using the outrigger jig. At the completion of this, final AP and lateral C-arm images were obtained that showed excellent alignment of the fracture and hardware. The jig was removed from the nail and then the wounds irrigated with bulb syringe, then closed. The small stab wounds for the Crosslock screws were closed with edna. The midline anterior knee wound was closed in layers with 0 Vicryl deep followed by 2-0 Vicryl and edna. Xeroform gauze and Webril with Eros wrap dressing were then applied to the leg, and then the patient was transferred to recovery room in stable condition. There were no complications. She tolerated the procedure well. Job ID: [id number]
--- NOTE | 2020-11-15 16:15 | RAD ---
FRONTAL AND LATERAL IMAGING OF THE LEFT TIBIA AND FIBULA: Date: 11/15/2020 Time: 10:11 a.m. COMPARISON: 11/15/2020 at 9:30 a.m. HISTORY: Fracture status post reduction. FINDINGS: Cast material has been placed. There is an obliquely oriented comminuted distal left tibial shaft fra cture which demonstrates 1.6 cm of residual lateral displacement and approximately 6.0 mm of anterior displacement. There is a comminuted obliquely oriented distal left fibular fracture with minimal med ial and posterior displacement. There is a partially visualized proximal left fibular fracture at the base of the left fibular head. IMPRESSION: Multifocal fibular fracture and left distal tibial shaft fracture as above. POS: MARCO
--- NOTE | 2020-11-15 16:46 | RAD ---
FRONTAL AND LATERAL IMAGING OF THE LEFT TIBIA AND FIBULA: Date: 11/15/2020 COMPARISON: None. HISTORY: Injury, trauma, pain. FINDINGS: Comminuted, obliquely oriented fractures are seen involving the distal left tibial and fibular shafts . There is prominent lateral displacement and lateral angulation of the distal fracture fragments. Th ere is an incompletely assessed fracture involving the proximal left fibula at the base of the fibula r head for which dedicated left knee imaging is advised. IMPRESSION: Obliquely oriented, angulated and displaced distal left tibial and fibular shaft fractures. There is an additional fracture at the base of the fibular head involving the proximal left fibular shaft. Rec ommend dedicated left knee imaging. POS: MARCO
[2020-11-15] MEDS ORDERED: hydrALAZINE 20 MG/ML VIAL SLOW IVP PRN (17:03)
[2020-11-15] MEDS ORDERED: Dextrose 5% in Water 1,000 ML IV PRN (17:03)
[2020-11-15] MEDS ORDERED: Ondansetron ODT 4 MG TAB PO PRN (17:03)
[2020-11-15] MEDS ORDERED: Dextrose 50% Abboject 50 ML SYRINGE SLOW IVP PRN (17:03)
[2020-11-15] MEDS ORDERED: Ondansetron PF 4 MG/2 ML Vial IVP PRN (17:03)
[2020-11-15] MEDS: traMADol HCl 50 MG TAB PO SCH ×2 (18:07→23:46)
[2020-11-15] MEDS: Ibuprofen 600 MG TAB PO SCH (18:07)
--- NOTE | 2020-11-15 18:12 | RAD ---
LEFT TIBIA AND FIBULA: INDICATIONS: Images taken during open reduction and internal fixation procedure of the left tibia. TECHNIQUE: Nine fluoroscopic images are present from the OR. FINDINGS: These images show an intramedullary mitch transfixing the distal tibia fracture. An associated fibula f racture is also noted. POS: AGW
[2020-11-15 18:35] VITALS: BMI 36.1
[2020-11-15 19:52] LABS: INR-International Normal Ratio 0.9; PTT 31.6 sec (22.9-36.1); Prothrombin Time 12.8 sec (12.0-14.7)
[2020-11-15 19:53] LABS: #Monocytes 0.5 thou/uL (0.11-0.59); #Neutrophils 10.5 thou/uL (1.40-6.50); %Basophils 0.1 % (0.0-1.0); %Eosinophils 0.3 % (0.0-10.0); %Lymphocytes 8.5 % (21.0-51.0); %Monocytes 4.2 % (0.0-10.0); %Neutrophils 86.9 % (42.0-75.0); Hemoglobin 13.4 g/dL (12.0-16.0); Mean Corpuscular HGB CONC 31.6 g/dL (32.0-36.0); Mean Corpuscular Hemoglobin 27.7 pg (27.0-31.0); Mean Corpuscular Volume 87.6 fL (78.0-98.0); Mean Platelet Volume 8.8 fL (7.4-10.4); Platelet Count 245 thou/uL (130-400); RBC Distribution Width 13.7 % (11.5-14.5); Red Blood Cell (RBC) Count 4.86 mill/uL (4.20-5.40); White Blood Cell (WBC) Count 12.1 thou/uL (4.8-10.8)
[2020-11-15] MEDS ORDERED: Sodium Chloride 0.9% 1,000 ML IV SCH (20:30)
[2020-11-15] MEDS: Famotidine 20 MG TAB PO SCH (20:39)
[2020-11-15] MEDS: Gabapentin 300 MG CAP PO SCH (20:39)
[2020-11-15] MEDS: Senokot S 8.6-50 MG TAB PO SCH (20:40)
[2020-11-15 21:28] LABS: ALT (SGPT) 53 U/L (8-55); AST (SGOT) 68 U/L (5-34); Albumin 3.3 g/dL (3.5-5.0); Alkaline Phosphatase 138 U/L (40-110); Anion Gap 16 mmol/L (10-20); BUN (Urea Nitrogen) 9 mg/dL (9.8-20.1); Bilirubin, Total 0.3 mg/dL (0.2-1.2); Calc. Creatinine Clearance 118 mL/min (70-130); Calcium 7.3 mg/dL (7.8-10.44); Carbon Dioxide 18 mmol/L (22-29); Chloride 107 mmol/L (98-107); Globulin 2.4 g/dL (2.4-3.5); Glucose 258 mg/dL (70-105); Potassium 4.2 mmol/L (3.5-5.1); Protein, Total 5.7 g/dL (6.0-8.3); Sodium 137 mmol/L (136-145)
[2020-11-16] MEDS: Ibuprofen 600 MG TAB PO SCH ×3 (02:44→18:15)
[2020-11-16 05:30] LABS: Magnesium 1.7 mg/dL (1.6-2.6); Phosphorus 3.3 mg/dL (2.3-4.7)
--- NOTE | 2020-11-16 05:37 | HP ---
CHIEF COMPLAINT: Left leg pain. HISTORY OF PRESENT ILLNESS: Ms. Iam Herzog is a 59-year-old female who presents to the emergency department level two trauma, the patient was in her kitchen this morning and there was some water on the floor. The left leg slipped out under her and she fell to the ground. The patient denies hitting her head or loss of consciousness. The patient admits to left lower leg pain. The patient had EMS bring her into the hospital today. X-rays show left tibia and fibular fracture. Orthopedics plans on taking her to the OR this morning for repair. REVIEW OF SYSTEMS: The patient denies shortness of breath, dizziness, headache, chest pain, fever, nausea, vomiting. Rest review of systems are normal. PAST SURGICAL HISTORY: Cholecystectomy , gastric bypass in 2001, breast reduction in 2000, laparotomy with lysis of right colectomy appendectomy. PAST MEDICAL HISTORY: Morbid obesity, gastric bypass, anemia, anxiety, depression, colon cancer. SOCIAL HISTORY: Tobacco use in the past. Denies alcohol use. [place] lives alone. ALLERGIES: NO KNOWN. PHYSICAL EXAMINATION: VITAL SIGNS: Stable. GENERAL: No acute distress. Lying flat on her back in bed. HEAD: Normocephalic, atraumatic. CARDIAC: Regular rate. Regular rhythm. LUNGS: No accessory muscle No acute distress. Speaking full sentences. ABDOMEN: Soft, nontender, with a midline laparotomy incision. EXTREMITIES: Left lower extremity, a posterior splint in place. Able to wiggle her toes. Moving right lower extremity, left upper, and right upper extremities bilaterally. Sensation intact. ASSESSMENT: 1. Ground level fall. 2. Left tibia and fibula fracture. 3. Pertinent past medical history of anxiety, depression, neuropathy. PLAN: After discussion with orthopedic team, plan to take the patient to the OR this morning for ORIF to repair left lower leg fracture. After patient is transferred to the floor, will have patient evaluated for PT/OT, aggressive pain management, and bowel regimen. Place the patient on DVT prophylaxis following surgery per Orthopedics. Patient just finished chemotherapy in May for colon cancer. Job ID: [id number] MTDD
--- NOTE | 2020-11-16 06:25 | CON ---
DATE OF CONSULTATION: HISTORY OF PRESENT ILLNESS: She is a female, who was at home. She was cleaning up some water on the floor, thought she had gotten it all, and unfortunately slipped on the water and fell. She sustained a left tib-fib fracture. X-ray in the ER was completed by Dr. Yee. He did give her a little bit of sedation and reduced it, but it is still misaligned. The patient denies any worsening numbness or tingling to her left lower extremity. She does have some neuropathy. Overall, she is fairly healthy. Her last meal was yesterday. She did have some black coffee earlier this morning, though no cream or sugar. PAST MEDICAL HISTORY: Positive for some mild depression and neuropathy. CURRENT MEDICATIONS: 1. Prozac. 2. Gabapentin. 3. Something for her stomach. It sounds like a proton pump inhibitor. She takes it one time a day. ALLERGIES: NONE. PAST SURGICAL HISTORY: She has had a tumor removed, a diaphragm/hernia rupture repair. SOCIAL HISTORY: [place] She is , but . No alcohol, nicotine, or drug products whatsoever. FAMILY HISTORY: Noncontributory. REVIEW OF SYSTEMS: Other than some mild depression and some neuropathy, she has no chest pain or shortness of breath, no bowel or bladder issues, just some left lower extremity pain due to fracture. Rest of review of systems as discussed, negative. PHYSICAL EXAMINATION: GENERAL: Well-nourished, well-developed female, resting on a gurney in room #5 in the ER. Currently, in no acute distress. VITAL SIGNS: Respirations 16. NEUROLOGIC: Speech is clear. Affect is quite pleasant. She answers questions appropriately. She is alert and oriented x3. HEENT: Scalp atraumatic. Face symmetric. Tongue midline. NECK: Supple. Trachea midline. EXTREMITIES: Upper extremities; equal size, shape, symmetry. Normal bulk and tone. Lower extremity exam; equal size, shape, symmetry. Normal bulk and tone with the exception of the left lower extremity, which is currently splinted, but she is able to wiggle her toes. She does have some sensory deficits, mild. She can feel me touching her toes. Pulses on the right are intact, left in a splint, but she has good cap refill in the bilateral lower extremities. DIAGNOSTIC DATA: X-rays pre and post show a tib-fib fracture. LABORATORY DATA: Rapid COVID being ran. ASSESSMENT: A tib-fib fracture. PLAN: We will have Trauma admit. Plan is to do surgery today since she is n.p.o. We will get her set up in the ER. I have discussed surgery. She will need a tibial nail. I have gone over the risks and benefits. The patient's questions and concerns have been addressed, and she is amenable to go forth with surgery. Again, Trauma will admit. We will get her some antibiotics before and after surgery. She will need physical therapy, occupational therapy, and since she lives alone, she will probably need to go to rehab, which she understands. Again, she has been n.p.o. since early this morning. Job ID: [id number]
[2020-11-16] MEDS: traMADol HCl 50 MG TAB PO SCH ×4 (06:28→23:54)
[2020-11-16] MEDS: Gabapentin 300 MG CAP PO SCH ×3 (09:56→20:30)
[2020-11-16] MEDS: FLUoxetine HCl 10 MG CAP PO SCH (09:57)
[2020-11-16] MEDS: Famotidine 20 MG TAB PO SCH ×2 (09:57→20:30)
[2020-11-16] MEDS: Senokot S 8.6-50 MG TAB PO SCH ×2 (09:58→20:30)
[2020-11-16 10:13] LABS: #Eosinphils 0.1 thou/uL (0.0-0.7); #Lymphocytes 1.7 thou/uL (1.20-3.40); #Monocytes 0.7 thou/uL (0.11-0.59); #Neutrophils 5.3 thou/uL (1.40-6.50); %Basophils 0.4 % (0.0-1.0); %Eosinophils 0.8 % (0.0-10.0); %Lymphocytes 21.9 % (21.0-51.0); %Neutrophils 67.9 % (42.0-75.0); Hemoglobin 10.8 g/dL (12.0-16.0); Mean Corpuscular HGB CONC 32.4 g/dL (32.0-36.0); Mean Corpuscular Hemoglobin 28.3 pg (27.0-31.0); Mean Corpuscular Volume 87.5 fL (78.0-98.0); Mean Platelet Volume 7.2 fL (7.4-10.4); Platelet Count 253 thou/uL (130-400); RBC Distribution Width 13.3 % (11.5-14.5); Red Blood Cell (RBC) Count 3.82 mill/uL (4.20-5.40); White Blood Cell (WBC) Count 7.8 thou/uL (4.8-10.8)
[2020-11-16 10:29] LABS: Anion Gap 14 mmol/L (10-20); BUN (Urea Nitrogen) 8 mg/dL (9.8-20.1); Calc. Creatinine Clearance 139 mL/min (70-130); Calcium 7.7 mg/dL (7.8-10.44); Carbon Dioxide 23 mmol/L (22-29); Chloride 107 mmol/L (98-107); Glucose 94 mg/dL (70-105); Magnesium 1.7 mg/dL (1.6-2.6); Phosphorus 2.9 mg/dL (2.3-4.7); Sodium 140 mmol/L (136-145)
[2020-11-16] MEDS ORDERED: Hydrocortisone Sod Succ/PF 100 mg/2 ml Vial IVP SCH (11:30)
[2020-11-16 13:53] LABS: #Eosinphils 0.1 thou/uL (0.0-0.7); #Monocytes 0.4 thou/uL (0.11-0.59); #Neutrophils 6.7 thou/uL (1.40-6.50); %Basophils 0.2 % (0.0-1.0); %Eosinophils 0.6 % (0.0-10.0); %Lymphocytes 12.1 % (21.0-51.0); %Monocytes 5.3 % (0.0-10.0); %Neutrophils 81.8 % (42.0-75.0); Hemoglobin 11.3 g/dL (12.0-16.0); Mean Corpuscular HGB CONC 33.2 g/dL (32.0-36.0); Mean Corpuscular Hemoglobin 29.5 pg (27.0-31.0); Mean Platelet Volume 7.5 fL (7.4-10.4); Platelet Count 238 thou/uL (130-400); RBC Distribution Width 13.3 % (11.5-14.5); Red Blood Cell (RBC) Count 3.83 mill/uL (4.20-5.40); White Blood Cell (WBC) Count 8.2 thou/uL (4.8-10.8)
--- NOTE | 2020-11-16 18:07 | PRG ---
DATE OF SERVICE: SUBJECTIVE: Ms. Vitale is a 59-year-old female, status post left IM nail stabilization of left tibia, closed treatment of left fibular fracture. The patient is recovering well on the surgical floor, participates in PT, OT. Patient's pain is well controlled. Tolerating regular diet. Continue to work with PT. The patient's blood pressure was soft this morning. Cortisol level was checked, it was less than 9. Patient is receiving cortisol . She has also received 1 L of fluid overnight. OBJECTIVE: VITAL SIGNS: Temperature 98, pulse 68, respiratory rate 16, O2 saturation 95, blood pressure 104/53. GENERAL: The patient is resting in bed, tired from surgery and is upset about this whole situation she is in. CARDIAC: Normal sinus rhythm. RESPIRATORY: Speaking full sentences. No accessory muscle use. ABDOMEN: Soft, nontender. MSK: Neurovascularly intact, moving all extremities. ASSESSMENT: 1. Ground-level fall. 2. Left tibia-fibular fracture, status postop repair. 3. Past medical history of anxiety, depression, neuropathy. 4. Hypotension, secondary to low cortisol. PLAN: The patient should remain on surgical floor. Continue with PT, OT. Discuss going to inpatient rehab for further physical therapy. The patient will remain on cortisol drip until blood pressure normalizes. We will continue DVT prophylaxis . Job ID: [id number] MTDMeghana
[2020-11-16] MEDS ORDERED: Magnesium Sulfate 3 GM in Sodium Chloride 0.9% 100 ML IV SCH (18:45)
[2020-11-16] MEDS: Hydrocortisone Sod Succ/PF 100 mg/2 ml Vial IVP SCH (20:29)
[2020-11-16] MEDS: traMADol HCl 50 MG TAB PO PRN (20:32)
[2020-11-17] MEDS: Ibuprofen 600 MG TAB PO SCH ×3 (03:43→18:49)
[2020-11-17] MEDS: Hydrocortisone Sod Succ/PF 100 mg/2 ml Vial IVP SCH ×3 (03:43→21:09)
[2020-11-17] MEDS: traMADol HCl 50 MG TAB PO SCH ×4 (05:51→18:46)
[2020-11-17 06:20] LABS: #Eosinphils 0.1 thou/uL (0.0-0.7); #Lymphocytes 1.7 thou/uL (1.20-3.40); #Monocytes 0.7 thou/uL (0.11-0.59); #Neutrophils 5.8 thou/uL (1.40-6.50); %Basophils 0.5 % (0.0-1.0); %Eosinophils 0.7 % (0.0-10.0); %Lymphocytes 20.4 % (21.0-51.0); %Monocytes 7.9 % (0.0-10.0); %Neutrophils 70.5 % (42.0-75.0); Hemoglobin 11.8 g/dL (12.0-16.0); Mean Corpuscular HGB CONC 32.2 g/dL (32.0-36.0); Mean Corpuscular Hemoglobin 28.6 pg (27.0-31.0); Mean Corpuscular Volume 88.9 fL (78.0-98.0); Mean Platelet Volume 7.6 fL (7.4-10.4); Platelet Count 253 thou/uL (130-400); RBC Distribution Width 13.5 % (11.5-14.5); Red Blood Cell (RBC) Count 4.14 mill/uL (4.20-5.40); White Blood Cell (WBC) Count 8.3 thou/uL (4.8-10.8)
[2020-11-17 06:39] LABS: Anion Gap 13 mmol/L (10-20); BUN (Urea Nitrogen) 9 mg/dL (9.8-20.1); Calc. Creatinine Clearance 141 mL/min (70-130); Calcium 8.4 mg/dL (7.8-10.44); Carbon Dioxide 25 mmol/L (22-29); Chloride 106 mmol/L (98-107); Glucose 94 mg/dL (70-105); Magnesium 2.3 mg/dL (1.6-2.6); Phosphorus 2.7 mg/dL (2.3-4.7); Potassium 4.2 mmol/L (3.5-5.1); Sodium 140 mmol/L (136-145)
[2020-11-17] MEDS: Senokot S 8.6-50 MG TAB PO SCH ×2 (09:01→21:12)
[2020-11-17] MEDS: Famotidine 20 MG TAB PO SCH ×2 (09:02→21:10)
[2020-11-17] MEDS: Aspirin 81 mg Enteric Coated Tablet PO SCH ×2 (09:02→21:10)
[2020-11-17] MEDS: FLUoxetine HCl 10 MG CAP PO SCH (09:04)
[2020-11-17] MEDS: Gabapentin 300 MG CAP PO SCH ×3 (09:05→21:11)
[2020-11-17] MEDS ORDERED: FLUoxetine HCl 10 MG CAP PO SCH (09:15)
--- NOTE | 2020-11-17 15:02 | PRG ---
DATE OF SERVICE: 11/17/2020 SUBJECTIVE: Ms. Vitale is a 59-year-old female, status post ground level fall, postoperative stabilization of left tibia, closed left fibular fracture repair. The patient is recovering well. The patient is participating with PT and OT. The patient admits not having a bowel movement for the last few days. We will add lactulose to bowel regimen. The patient's pain is well controlled. Blood pressure is improving on cortisol. We will continue cortisol for the time being until blood pressure normalizes. OBJECTIVE: VITAL SIGNS: Temperature 98.5, pulse 85, respiratory rate 16, sats 95% on room air, and blood pressure 98/64. ASSESSMENT: 1. Ground level fall. 2. Left tibia-fibular fracture, status post operative repair. 3. Past medical history of anxiety, depression, neuropathy. 4. Hypotension secondary to adrenal insufficiency PLAN OF TREATMENT: The patient should remain on surgical floor. Increase gabapentin from 300 t.i.d. to 900 t.i.d. home dose. -Bowel Regimen -Pain Regimen -All rest of the patient's home medications have been resumed date of admission. -PT/OT. The patient will be discharged to inpatient rehab. The patient was seen with Dr. yLnch at bedside, who agrees with assessment and plan. Job ID: [id number] MTDD
[2020-11-18] MEDS: traMADol HCl 50 MG TAB PO SCH ×5 (00:37→23:43)
[2020-11-18] MEDS: Ibuprofen 600 MG TAB PO SCH ×3 (01:51→18:02)
[2020-11-18] MEDS: traMADol HCl 50 MG TAB PO PRN (01:52)
[2020-11-18] MEDS: Hydrocortisone Sod Succ/PF 100 mg/2 ml Vial IVP SCH ×3 (04:58→21:00)
[2020-11-18] MEDS: Senokot S 8.6-50 MG TAB PO SCH ×2 (09:28→21:03)
[2020-11-18] MEDS: Gabapentin 300 MG CAP PO SCH ×3 (09:29→21:01)
[2020-11-18] MEDS: Aspirin 81 mg Enteric Coated Tablet PO SCH ×2 (09:30→21:03)
[2020-11-18] MEDS: FLUoxetine HCl 20 MG CAP PO SCH (09:30)
[2020-11-19] MEDS: Hydrocortisone Sod Succ/PF 100 mg/2 ml Vial IVP SCH ×3 (03:09→20:29)
[2020-11-19] MEDS: Ibuprofen 600 MG TAB PO SCH ×3 (03:10→17:07)
[2020-11-19] MEDS: traMADol HCl 50 MG TAB PO SCH ×3 (05:25→17:07)
--- NOTE | 2020-11-19 06:32 | PRG ---
DATE OF SERVICE: 11/19/2020 A 59-year-old female. Ms. Vitale was seen on evening rounds. The patient is in no acute distress, resting comfortably in bed. Pain well controlled. The patient is status post IM nail stabilization of left tibia with closed treatment of left fibular fracture. The patient is medically stable and ready for discharge pending rehab. Job ID: [id number] MTDD
[2020-11-19] MEDS: Senokot S 8.6-50 MG TAB PO SCH ×2 (09:03→20:28)
[2020-11-19] MEDS: FLUoxetine HCl 20 MG CAP PO SCH (09:03)
[2020-11-19] MEDS: Aspirin 81 mg Enteric Coated Tablet PO SCH ×2 (09:03→20:28)
[2020-11-19] MEDS: Gabapentin 300 MG CAP PO SCH ×3 (09:04→20:29)
--- NOTE | 2020-11-19 18:07 | PRG ---
DATE OF SERVICE: SUBJECTIVE: The patient remains on the surgical floor. She is status post ground level fall, in which she sustained a left distal tibia and fibular fracture that has undergone ORIF. She is currently awaiting placement. She is tolerating diet. Her pain is controlled. She is working with Physical and Occupational therapy and she was able to ambulate 16 feet today. PHYSICAL EXAMINATION: VITAL SIGNS: Temperature is 97.6, heart rate 58, respirations 16, and oxygen saturation is 96% on room air, blood pressure is 115/77. GENERAL: The patient is resting comfortably in bed. She is awake, alert, conversant, appropriate. Compa Coma Scale is 15. HEENT: Unremarkable. LUNGS: Respirations are nonlabored with equal rise and fall of chest. ABDOMEN: Flat, nondistended. EXTREMITIES: Neurovascularly intact x4. LABORATORY DATA: There are no labs or radiographs to review this morning. ASSESSMENT: 1. Status post ground level fall. 2. Comminuted left tibial shaft fracture. 3. Segmental left fibular fracture, status post open reduction and internal fixation of same. 4. History of anxiety, depression, neuropathy. 5. Adrenal insufficiency, improving. PLAN: Plan will be to continue supportive care, encourage physical and occupational therapy and await placement decision. The patient was discussed this morning with Dr. Lynch during rounds. Job ID: [id number]
[2020-11-19] MEDS: Cyclobenzaprine 10 MG TAB PO PRN (20:29)
[2020-11-20] MEDS: Ibuprofen 600 MG TAB PO SCH ×3 (00:49→17:36)
[2020-11-20] MEDS: traMADol HCl 50 MG TAB PO SCH ×5 (00:49→23:31)
--- NOTE | 2020-11-20 02:51 | PRG ---
DATE OF SERVICE: 11/20/2020 SUBJECTIVE: Ms. Vitale is a 59-year-old female, recovering well on the surgical floor. She is status post slip and fall. Postop day 3 from IM nail stabilization of left tibia, closed treatment of left fibula fracture. The patient was seen this evening. Denies pain or discomfort. Tolerating regular diet, had one bowel movement tonight. OBJECTIVE: VITAL SIGNS: Temperature 97.9, pulse 55, respiratory rate 16, O2 saturation 96, blood pressure 110/72. GENERAL: The patient is in no acute distress, breathing room air. EXTREMITIES: Sensation intact in bilateral lower extremities. Walking boot in place. PLAN: The patient continues to make great progress. Recommend PT, OT. We will continue to work with Case Management on discharging the patient either to rehab or home depending on how she does with PT over the weekend. Job ID: [id number] MTDD
[2020-11-20] MEDS: Hydrocortisone Sod Succ/PF 100 mg/2 ml Vial IVP SCH ×3 (05:09→20:27)
[2020-11-20] MEDS: Gabapentin 300 MG CAP PO SCH ×3 (08:13→20:26)
[2020-11-20] MEDS: FLUoxetine HCl 20 MG CAP PO SCH (08:13)
[2020-11-20] MEDS: Senokot S 8.6-50 MG TAB PO SCH ×2 (08:13→20:26)
[2020-11-20] MEDS: Aspirin 81 mg Enteric Coated Tablet PO SCH ×2 (08:13→20:26)
[2020-11-20] MEDS: Cyclobenzaprine 10 MG TAB PO PRN (20:26)
--- NOTE | 2020-11-21 00:50 | PRG ---
DATE OF SERVICE: 11/20/2020 SUBJECTIVE: A 59-year-old female, hospital day #5, status post ground level fall, sustaining left ankle, left distal tibia and fibular fractures, has undergone ORIF. Currently awaiting placement/deciding where to go. She is doing well, walking 30 or so feet, worked with PT/OT. Pain is generally controlled. She is tolerating a diet. She is passing gas. OBJECTIVE: VITAL SIGNS: Temperature is 98.3, blood pressure 94/64, heart rate is 64, breathing 14 times per minute, 96% on room air. GENERAL: A 59-year-old female, nontoxic appearing, actually happy, sitting up. No acute distress. HEENT: Normocephalic. Trachea is midline. RESPIRATORY: Equal rise and fall. No respiratory distress. CARDIOVASCULAR: Strong pulses. MUSCULOSKELETAL: She has warm distal extremities. Moves all extremities. She has good sensation. Left lower extremity, below the level of the injury, she does have surgery sites noted that are plain and dry. PSYCH: Normal mood and affect. NEURO: Alert and oriented. GCS of 15. LABORATORY DATA: None to review today. ASSESSMENT: 1. Status post ground level fall. 2. Comminuted left tibial shaft fracture. 3. Segmental left fibular fracture, status post open reduction and internal fixation. 4. History of anxiety, depression, neuropathy. 5. Adrenal insufficiency, that is improving. PLAN: 1. We will continue all supportive care. 2. Continue working with PT/OT. 3. Hope to find placement in the ensuing days. Job ID: [id number]
[2020-11-21] MEDS: Ibuprofen 600 MG TAB PO SCH ×3 (03:00→17:26)
[2020-11-21] MEDS: Hydrocortisone Sod Succ/PF 100 mg/2 ml Vial IVP SCH ×3 (03:01→20:19)
[2020-11-21] MEDS: traMADol HCl 50 MG TAB PO SCH ×3 (05:57→17:27)
[2020-11-21] MEDS: Aspirin 81 mg Enteric Coated Tablet PO SCH (09:09)
[2020-11-21] MEDS: Gabapentin 300 MG CAP PO SCH ×3 (09:09→20:20)
[2020-11-21] MEDS: FLUoxetine HCl 20 MG CAP PO SCH (09:09)
[2020-11-21] MEDS: Senokot S 8.6-50 MG TAB PO SCH ×2 (09:09→20:19)
--- NOTE | 2020-11-21 09:42 | PRG ---
DATE OF SERVICE: 11/21/2020 SUBJECTIVE: Juany is a 59-year-old white female, postop day 6 from a left tibial nail with distal fibular open reduction and internal fixation. She is doing relatively well. She is mobilizing up to the door now at this point and her pain is very well controlled. She is slowly but surely getting better. I believe the plan is to transfer her to rehabilitation for continued efforts and independence. OBJECTIVE: VITAL SIGNS: Temperature 98.3, pulse 63, respiratory rate 16, and blood pressure 111/75. GENERAL: She is alert, responsive, appropriate and conversive with examiner, pleasant. EXTREMITIES: Her incisions at the knee and proximal interlocking screws were clean. No drainage and these have been re-dressed. Range of motion of the knee is good and improving. She can straight leg raise. Her boot is intact. She is neurovascularly intact in the left lower extremity with full digital excursion identified. LABORATORY DATA: Hemoglobin and hematocrit 11.9 and 36.8, stable. IMPRESSION: A 59-year-old female postop day 6, left tibia/fibular fractures, both treated with tibial nail and ORIF. PLAN: Continue current care. Continue nonweightbearing and boot. Stable for transfer from orthopedic standpoint. Follow up in clinic and postop day 12 to 14. Job ID: [id number]
[2020-11-21] MEDS ORDERED: Acetaminophen 325 MG TAB PO SCH (15:15)
[2020-11-21] MEDS: Acetaminophen 325 MG TAB PO SCH (17:27)
--- NOTE | 2020-11-21 19:29 | PRG ---
DATE OF SERVICE: 11/21/2020 SUBJECTIVE: Ms. Vitale is a 59-year-old female, postop day #6, left tibial nail with distal fibular open reduction and internal fixation. She is overall doing well, just waiting for placement. No events reported overnight. OBJECTIVE: VITAL SIGNS: Temperature is 98.5, blood pressure 94/65, heart rate 71, breathing 16 times per minute, oxygen saturation 97% on room air. GENERAL: A 59-year-old female, sitting up, in no acute distress. EXTREMITIES: She has left boot on. She has ecchymosis and swelling of the left lower extremity, somewhat expected. RESPIRATORY: Equal rise and fall. No respiratory distress. CARDIOVASCULAR: She does have some strong pulses. NEUROLOGIC: GCS 15. PSYCHIATRIC: Normal mood. DIAGNOSTICS: Today, there are no labs to review. ASSESSMENT: 1. Ground level fall. 2. Comminuted left tibial shaft fracture. 3. Segmental left fibular fracture, status post open reduction and internal fixation. 4. History of anxiety, depression, and neuropathy. 5. Adrenal insufficiency that is improving. PLAN: 1. Continue supportive care. Continue to work with PT/OT. 2. Hoping to find placement in the ensuing days. The patient is on aspirin b.i.d. for prophylaxis. Given that she has a lower extremity wound, I am going to change her and add Lovenox this evening. Job ID: [id number]
[2020-11-21] MEDS: Enoxaparin Sodium 40 MG/0.4 ML SYRINGE SC SCH (20:19)
[2020-11-21] MEDS: Cyclobenzaprine 10 MG TAB PO PRN (20:20)
[2020-11-22] MEDS: traMADol HCl 50 MG TAB PO SCH ×4 (00:10→18:04)
[2020-11-22] MEDS: Acetaminophen 325 MG TAB PO SCH ×5 (00:11→23:14)
[2020-11-22] MEDS: Ibuprofen 600 MG TAB PO SCH ×3 (02:47→18:03)
[2020-11-22] MEDS: Hydrocortisone Sod Succ/PF 100 mg/2 ml Vial IVP SCH ×3 (03:02→20:31)
[2020-11-22] MEDS ORDERED: Sodium Chloride 0.9% 500 ML IVPB SCH (06:00)
[2020-11-22 06:23] LABS: Hemoglobin 11.1 g/dL (12.0-16.0); Mean Corpuscular HGB CONC 32.7 g/dL (32.0-36.0); Mean Corpuscular Hemoglobin 28.4 pg (27.0-31.0); Mean Corpuscular Volume 86.8 fL (78.0-98.0); Mean Platelet Volume 7.3 fL (7.4-10.4); Platelet Count 232 thou/uL (130-400); RBC Distribution Width 13.8 % (11.5-14.5); Red Blood Cell (RBC) Count 3.92 mill/uL (4.20-5.40); White Blood Cell (WBC) Count 6.1 thou/uL (4.8-10.8)
[2020-11-22 06:44] LABS: Band 12 % (5-11); Lymphocytes 5 % (21-51); MDiff Complete? YES; Monocytes 4 % (0-10); Neutrophil 78 % (42-75); Platelet Morphology Comment Appears Adequate
[2020-11-22 06:45] LABS: Anion Gap 13 mmol/L (10-20); BUN (Urea Nitrogen) 13 mg/dL (9.8-20.1); Calc. Creatinine Clearance 141 mL/min (70-130); Carbon Dioxide 22 mmol/L (23-31); Chloride 106 mmol/L (98-107); Glucose 97 mg/dL (80-115); Magnesium 1.7 mg/dL (1.6-2.6); Phosphorus 3.3 mg/dL (2.3-4.7); Potassium 3.6 mmol/L (3.5-5.1); Sodium 137 mmol/L (136-145)
[2020-11-22] MEDS: Gabapentin 300 MG CAP PO SCH ×3 (09:04→20:43)
[2020-11-22] MEDS: FLUoxetine HCl 20 MG CAP PO SCH (09:04)
[2020-11-22] MEDS: Senokot S 8.6-50 MG TAB PO SCH ×2 (09:04→20:43)
--- NOTE | 2020-11-22 18:00 | PDOC.GSPN ---
Surgery Progress Note: Subj - Subjective Patient reports: no new complaints, positive flatus, voiding w/o difficulty, no bowel movement, still having pain, vomiting Narrative: Patient is a 60 year old female post-op day 7 for an IM nail stabilization and a fractured fibula repair. Patient reports feeling a little better today but is still experiencing "normal" 5/10 pain in her leg that does not radiate. Patient had no bowel movement today but reports being able to pass gas. Patient reports no difficulty urinating and urinated twice. Patient reports a fever of 99.9, chills, and "headpounding" yesterday. She says she woke up today sweaty and clammy. She says she was eating fine but vomited up her lunch today. Patient cannot bear weight on her leg but can get into a wheelchair to go by the nurse's station. Patient is eager to be discharged from the hospital. Denies nausea and diarrhea. Surgery Progress Note: Obj - Vital signs Vital signs: Vital Signs - Most Recent Temp Pulse Resp BP Pulse Ox 98 F 73 12 135/69 94 L 11/22/20 15:05 11/22/20 15:05 11/22/20 15:05 11/22/20 15:05 11/22/20 15:05 - Physical Exam General: no distress, moderate pain (5/10) Cardiovascular: regular rate and rhythm, no murmur Respiratory: clear to auscultation, normal respiratory effort Abdomen: non tender, positive bowel sounds Integumentary: other (bruising over left leg) Psychiatric: oriented to person, oriented to place, speech is normal Wound: dressing clean,dry,intact (lower leg dressing placed recently) Additional exam: Patient has a midline abdominal scar Surgery Progress Note: Results - Labs Result Diagrams: 11/22/20 05:57 11/22/20 05:57 Lab results: Laboratory Results - last 12 hr 11/22/20 11/22/20 05:57 05:57 WBC 6.1 RBC 3.92 L Hgb 11.1 L Hct 34.0 L MCV 86.8 MCH 28.4 MCHC 32.7 RDW 13.8 Plt Count 232 MPV 7.3 L Neutrophils % (Manual) 78 H Band Neuts % (Manual) 12 H Lymphocytes % (Manual) 5 L Monocytes % (Manual) 4 Basophils % (Manual) 1 Lymphocytes # Not Reportable Plt Morphology Comment Appears Adequate Sodium 137 Potassium 3.6 Chloride 106 Carbon Dioxide 22 L Anion Gap 13 BUN 13 Creatinine 0.65 Estimated GFR (MDRD) Greater than 90 Glucose 97 Calcium 8.0 Phosphorus 3.3 Magnesium 1.7 Surgery Progress Note: A/P - Plan Plan: Assessment 1. Ground level fall 2. Left tibia fracture 3. Left fibula fracture Plan 1. Continue supportive care and DVT prophylaxis. 2. Maintain left leg as nonweightbearing. 3. Work with Case Management to get patient moved to a alf or rehabilitation facility. Addendum - Attending - Attending Attestation Date/Time: 11/23/20 1444 I personally evaluated the patient and discussed the management with Dr. [] I agree with the History, Examination, Assessment and Plan documented above with any addition or exceptions noted below.
[2020-11-22] MEDS: Enoxaparin Sodium 40 MG/0.4 ML SYRINGE SC SCH (20:43)
[2020-11-22] MEDS ORDERED: predniSONE 20 MG TAB PO SCH (20:45)
[2020-11-22] MEDS ORDERED: Sodium Phosphate 30 MMOL in Sodium Chloride 0.9% 250 ML 250 ML IVPB SCH (22:30)
[2020-11-22] MEDS ORDERED: Magnesium Sulfate 3 GM in Sodium Chloride 0.9% 100 ML IV SCH (22:30)
[2020-11-23] MEDS: Ibuprofen 600 MG TAB PO SCH ×3 (02:52→17:59)
[2020-11-23] MEDS: traMADol HCl 50 MG TAB PO PRN ×2 (05:40→11:08)
[2020-11-23] MEDS: Acetaminophen 325 MG TAB PO SCH ×3 (05:40→18:00)
--- NOTE | 2020-11-23 07:49 | PDOC.BPN ---
<PalmerTristen westbrook - Last Filed: 11/23/20 07:34> - Brief Progress Note Encounter Date: 11/23/20 Encounter Time: 07:35 Subjective The patient is a 60 year old female post-op day 8 for IM nail stabilization of the tibia and fibula fracture repair. The patient reports feeling well this morning and got "really good" sleep. Her pain is a 3/10 "sore" pain that is localized to the left leg. The patient has not had a bowel movement since Sunday, but reports passing gas frequently. Denies vomiting, headache, or head- throbbing. The patient says she lost the IV in her arm last night. She eats a regular diet. She is receiving Sodium Phosphate and her Tramadol has been discontinued. Objective Vitals Vital Signs - 24 hr 11/22/20 11/22/20 11/22/20 08:00 11:31 15:05 Temperature 98.2 F 98 F Pulse Rate 68 73 Respiratory 14 12 Rate Blood Pressure 96/62 135/69 [Semi-Fowlers] O2 Sat by Pulse 96 94 L 94 L Oximetry 11/22/20 11/22/20 11/23/20 20:32 23:15 04:00 Temperature 98.1 F 97.9 F 97.8 F Pulse Rate 71 77 67 Respiratory 16 16 16 Rate Blood Pressure 86/52 L 89/57 L 103/71 [Semi-Fowlers] O2 Sat by Pulse 94 L 94 L 94 L Oximetry Cardiovascular - Regular rate and rhythm. No murmurs detected. Respiratory - Lungs clear to auscultation. Vesicular breath sounds heard. No wheezing or rhonchi detected. Abdominal - Normoactive bowel sounds. Not tender to palpation. Integument - Erythematous lesion on right arm where IV pulled out. Assessment 1. Ground fall 2. Tibia fracture 3. Fibula fracture Plan 1. Continue supportive care and DVT prophylaxis. 2. Maintain left leg as [id number]. 2. Continue to work with Case Management to get patient moved to [facility] or rehabilitation. <Fadi Lynch - Last Filed: 11/23/20 13:59> Addendum - Attending - Attending Attestation Date/Time: 11/23/20 3515 I personally evaluated the patient and discussed the management with Dr. [] I agree with the History, Examination, Assessment and Plan documented above with any addition or exceptions noted below.
[2020-11-23] MEDS ORDERED: Hydrocortisone Sod Succ/PF 100 mg/2 ml Vial IVP SCH ×2 (09:15→14:00)
[2020-11-23] MEDS: FLUoxetine HCl 20 MG CAP PO SCH (09:19)
[2020-11-23] MEDS: Gabapentin 300 MG CAP PO SCH ×3 (09:20→20:50)
[2020-11-23] MEDS: Sulfameth/Trimethoprim DS 800-160mg TAB PO SCH ×2 (09:22→20:51)
[2020-11-23] MEDS: Senokot S 8.6-50 MG TAB PO SCH ×2 (09:22→20:52)
--- NOTE | 2020-11-23 10:30 | ULT ---
ULTRASOUND DOPPLER DUPLEX VENOUS LEFT LOWER EXTREMITY: DATE: 11/23/2020 HISTORY: 60-year-old female with left lower extremity pain TECHNIQUE: Grayscale, color-flow, and spectral analysis, of major veins of left lower extremity. FINDINGS: There is demonstration of blood flow with normal compressibility, of the left common femoral, profund a femoral, greater saphenous, femoral, popliteal, and posterior tibial, veins. IMPRESSION: Negative. No deep venous thrombosis of left lower extremity.
[2020-11-23] MEDS: Mupirocin 2% Ointment 22 GM Tube TOP SCH ×3 (10:53→21:04)
--- NOTE | 2020-11-23 15:54 | PDOC.BPN ---
<Tristen Palmer Laly - Last Filed: 11/23/20 15:05> - Brief Progress Note Encounter Date: 11/23/20 Encounter Time: 15:05 Subjective The patient 60 year old female post-op day 8 for IM nail stabilization of the tibia and fibula fracture repair. The patient reports feeling well and is experiencing 3/10 pain localized to the leg. Patient had a bowel movement earlier today and is having no difficulty urinating. Patient was able to go up stairs with physical therapy. Patient is now on antibiotics for her right forearm lesion. Denies fever, diarrhea, headache, stomach pain, chest pain, and nausea. Patient vomited earlier today but said she ate too fast and has a surgical history of a gastric bypass. Patient says she feels dizzy sometimes if she gets up too fast. Patient's wounds are covered and dry, but the patient says her upper left leg dressings have not been changed and her lower left leg dressing had something "ooze" onto it. Objective Vitals Vital Signs - 24 hr 11/22/20 11/22/20 11/23/20 20:32 23:15 04:00 Temperature 98.1 F 97.9 F 97.8 F Pulse Rate 71 77 67 Respiratory 16 16 16 Rate Blood Pressure 86/52 L 89/57 L 103/71 [Semi-Fowlers] O2 Sat by Pulse 94 L 94 L 94 L Oximetry 11/23/20 11/23/20 11/23/20 07:16 08:00 11:24 Temperature 97.9 F 98.2 F Pulse Rate 62 63 Respiratory 18 20 Rate Blood Pressure 89/63 L 101/65 [Semi-Fowlers] O2 Sat by Pulse 95 95 97 Oximetry General - Patient is in no acute distress, pleasant and cooperative. GSC score of 15 (E4, V5, M6). Cardiovascular - Regular rate and rhythm, no murmurs. Right radial pulse 5/5 and faint left radial pulse. Respiratory - Vesicular breath sounds heard. Faint crackling heard in upper lung [place]. Abdominal - Normoactive bowel sounds. Not tender to palpation. Integument - Erythematous pustule-like lesion over proximal right forearm. Assessment 1. DDx - Ground fall Orthostatic hypertension - sometimes dizzy if getting up too fast, reports she falls a lot Peripheral neuropathy - has history of neuropathy in foot, reports bad balance, reports she falls a lot Accidental injury - reports bad balance, reports she falls a lot 2. Tibia fracture 3. Fibula fracture Plan 1. Continue supportive care, antibiotics, and DVT prophylaxis. 2. Maintain left leg as [id number]. 3. Work with Case Management to get patient moved to senior living or rehabilitation. <Fadi Lynch - Last Filed: 11/25/20 15:53> Addendum - Attending - Attending Attestation Date/Time: 11/25/20 7265 I personally evaluated the patient and discussed the management with Dr. [] I agree with the History, Examination, Assessment and Plan documented above with any addition or exceptions noted below.
[2020-11-23] MEDS: Enoxaparin Sodium 40 MG/0.4 ML SYRINGE SC SCH (20:49)
[2020-11-23] MEDS ORDERED: Acetaminophen 325 MG TAB PO SCH (23:59)
[2020-11-24] MEDS: Acetaminophen 500 MG TAB PO SCH ×3 (00:02→12:19)
--- NOTE | 2020-11-24 00:27 | PRG ---
DATE OF SERVICE: 11/23/2020 SUBJECTIVE: The patient was seen this evening during rounds. She was lying in bed on her left side, asleep with no signs of acute distress. Nursing reported no acute events. OBJECTIVE: VITAL SIGNS: Temperature 98.3, pulse 63, respirations 16, oxygen saturation 95% on room air, blood pressure 124/84. GENERAL: Well-appearing middle-aged female, lying on her side, resting comfortably, and asleep with no signs of acute distress. PULMONARY: Equal chest rise and fall. No signs of acute respiratory distress. ASSESSMENT: 1. Status post ground level fall. 2. Left comminuted tibial shaft fracture and left fibular fracture. 3. History of gastric bypass surgery, hypertension, anxiety, depression, and colon cancer. PLAN: Continue current diet and pain regimen. Continue physical and occupational therapy. Monitor vital signs. Discontinue NSAIDs secondary to history of gastric bypass surgery and we will increase Tylenol in its place. We will make further pain medication adjustments as needed. Job ID: [id number]
--- NOTE | 2020-11-24 07:51 | PDOC.BPN ---
<PalmerTristen Ruffin - Last Filed: 11/24/20 07:41> - Brief Progress Note Encounter Date: 11/24/20 Encounter Time: 07:41 Subjective The patient is a 60 year old female post-op day 9 for IM nail stabilization of the tibia and fibula fracture repair. The patient reports "doing good" this morning. She says the pain in her left leg is a 1-2/10. The patient had a bowel movement yesterday morning and has no difficulty urinating. Patient denies fever, vomiting, diarrhea, headache, abdominal pain, or chest pain. She had ointment put on her right forearm last night. Objective Vitals Vital Signs (12 hours) Temp Pulse Resp BP Pulse Ox 11/24/20 05:06 98 F 60 16 107/72 96 11/24/20 00:00 98.1 F 63 16 103/70 95 11/23/20 20:00 98.3 F 63 16 124/84 95 Weight Weight 98.43 kg General - Patient in no acute distress and is pleasant and cooperative. GCS 15 (E4, V5, M6). Cardiovascular - Regular rate and rhythm. No murmurs detected Respiratory - Clear to auscultation. Vesicular breath sounds heard. Abdominal - Normoactive bowel sounds heard in all quadrants. Non-tender to palpation. Integument - Contusions over left leg and left lower thigh. Pustule on proximal right forearm. Assessment 1. Ground fall 2. Tibial fracture 3. Fibula fracture Plan 1. Continue supportive care and DVT prophylaxis. 2. Maintain left leg as [id number]. 3. Work with Case Management to move patient to [facility] or rehabilitation. <Fadi Lynch - Last Filed: 11/25/20 15:53> Addendum - Attending - Attending Attestation Date/Time: 11/25/20 0408 I personally evaluated the patient and discussed the management with Dr. [] I agree with the History, Examination, Assessment and Plan documented above with any addition or exceptions noted below.
[2020-11-24] MEDS: Senokot S 8.6-50 MG TAB PO SCH (09:09)
[2020-11-24] MEDS: Sulfameth/Trimethoprim DS 800-160mg TAB PO SCH (09:09)
[2020-11-24] MEDS: Mupirocin 2% Ointment 22 GM Tube TOP SCH (09:10)
[2020-11-24] MEDS: Gabapentin 300 MG CAP PO SCH ×2 (09:10→15:31)
[2020-11-24] MEDS: FLUoxetine HCl 20 MG CAP PO SCH (09:10)
[2020-11-24] MEDS ORDERED: Mupirocin 2% Ointment 22 GM Tube TOP SCH (15:00)
[2020-11-24 17:18] VITALS: BP 101/69; TEMP 95.2
[2020-11-24] MEDS ORDERED: Sulfameth/Trimethoprim DS 800-160mg TAB PO SCH (21:00)
--- NOTE | 2020-11-25 07:47 | DIS ---
DATE OF ADMISSION: 11/15/2020 DATE OF DISCHARGE: 11/24/2020 ADMISSION DIAGNOSES: Left comminuted tibial fracture, left segmental fibular fracture. PROCEDURE PERFORMED: IM nail stabilization of left tibia, closed treatment of left fibular fracture. HOSPITAL COURSE: Ms. Iam Herzog is a 60-year-old female patient who presents to the emergency department after level II trauma. The patient fell in the kitchen floor when it was wet. X-ray shows left tibia and fibular fracture. Orthopedics took the patient to the OR on 11/15. They performed a IM nail stabilization of left tibia and closed left fibular fracture repair. The patient resumed on all her home medications. The patient is to receive cortisol for a cortisol level of 2.0. The patient was started on Lovenox for DVT prophylaxis while in the hospital. SCDs, GI prophylaxis, and pulmonary toilet. The patient worked with PT, OT. At time of discharge, the PT recommended rehab. Case Management worked with the patient closely and sent our referral to [facility] accepted the patient. The patient is to be discharged today. PHYSICAL EXAMINATION: VITAL SIGNS: At the time of discharge, temperature 98.7, pulse 71, respiratory rate 16, O2 saturation 95, and blood pressure 106/71. GENERAL: The patient is sitting up, in no acute distress. Resting in bed comfortably. CARDIAC: Regular sinus rate and rhythm. LUNGS: Equal breath sounds bilaterally. No accessory muscle use. ABDOMEN: Soft, nontender. EXTREMITIES: The patient has walking boot on her left foot. [place] intact. Ecchymosis, left lower extremity. IMAGING STUDIES: At time of discharge, venous duplex negative for DVT. LABORATORY DATA: At discharge, sodium 137, potassium 3.6, BUN 13, creatinine 0.65, phosphorus 2.3, magnesium 1.7. Hematology, hemoglobin 11.1, hematocrit 34, platelets 732, white blood cell count 6.1. ASSESSMENT: 60-year-old female patient, status post slip and fall in her kitchen, status post operative repair of left tibia. PLAN: The patient should remain in walking boot. Follow up with Orthopedics in 1-2 weeks to have edna removed. Per orthopedic continue mupirocin once daily to right antecubital fossa and Bactrim BID for 5 days. Follow Orthopedic on weightbearing instructions. Continue pain medication as needed. Dictation time 20 minutes. Job ID: [id number]
== END 2020-11-24 17:38 | DRG 493 ==
LOC: ERS 09:24 → SDC 13:20 → SJJU 16:57
PROVIDERS: ADMIT Specialist; ATTEND Specialist
PROC: 0QSH06Z Reposition Left Tibia with Intramedullary Internal Fixation Device, Open Approach (ICD-10-PCS; principal; 2020-11-15)
PROC: 0QSK04Z Reposition Left Fibula with Internal Fixation Device, Open Approach (ICD-10-PCS; 2020-11-15)
DX: S82.202A Unspecified fracture of shaft of left tibia, initial encounter for closed fracture (principal); E27.40 Unspecified adrenocortical insufficiency; S82.462A Displaced segmental fracture of shaft of left fibula, initial encounter for closed fracture; W01.0XXA Fall on same level from slipping, tripping and stumbling without subsequent striking against object, initial encounter; E66.01 Morbid (severe) obesity due to excess calories; D64.9 Anemia, unspecified; F41.9 Anxiety disorder, unspecified; F32.9 Major depressive disorder, single episode, unspecified; G62.9 Polyneuropathy, unspecified; Z20.822 Contact with and (suspected) exposure to COVID-19; I95.9 Hypotension, unspecified; Z90.49 Acquired absence of other specified parts of digestive tract; Z85.038 Personal history of other malignant neoplasm of large intestine; Z68.36 Body mass index [BMI] 36.0-36.9, adult
CPT/HCPCS: 0240U; 27788; 27825; 36415; 76000; 80048; 80053; 82533; 83735; 84100; 85025; 85610; 85730; 86850; 86900; 86901; 93970; 96374; 99152; 99153; C1713; C1769; G0390; J1100; J1650; J1720; J2405; J2704; J3010; J3475; J3490; J7050; J7512

== ENCOUNTER 2021-04-12 09:53 | Outpatient (CLI) | payer MEDICARE ==
[2021-04-13 15:39] LABS: SARS-CoV-2 PCR by NAA Not Detected (NotDetected)
== END 2021-04-12 09:54 | disposition home or self-care (01) ==
LOC: LABBT 09:53
PROVIDERS: ATTEND Orthopaedic Surgery
DX: Z01.812 Encounter for preprocedural laboratory examination (principal); M21.072 Valgus deformity, not elsewhere classified, left ankle; Z20.822 Contact with and (suspected) exposure to COVID-19
CPT/HCPCS: U0003; U0005

== ENCOUNTER 2021-10-04 10:39 | Outpatient (CLI) | payer MEDICARE ==
[2021-10-04 20:13] LABS: SARS-CoV-2 PCR by NAA Not Detected (NotDetected)
== END 2021-10-04 10:40 | disposition home or self-care (01) ==
LOC: LABBT 10:39
PROVIDERS: ATTEND Orthopaedic Surgery
DX: Z01.812 Encounter for preprocedural laboratory examination (principal); S82.202A Unspecified fracture of shaft of left tibia, initial encounter for closed fracture; Z20.822 Contact with and (suspected) exposure to COVID-19
CPT/HCPCS: U0003; U0005

== ENCOUNTER 2021-10-04 10:45 | Observation (INO) | payer MEDICARE ==
[2021-09-29 14:00] VITALS: BMI 36.1
[2021-10-07] MEDS ORDERED: ceFAZolin 2 GM/DEX 5% 100 ML BAG ONE (06:47)
[2021-10-07] MEDS ORDERED: Lidocaine 1% (PF) 30 ML VIAL ONE (07:02)
[2021-10-07] MEDS ORDERED: Midazolam HCl 2 mg/2 ml Vial ONE (07:02)
[2021-10-07] MEDS ORDERED: Fentanyl 100 MCG/2 ML VIAL ONE ×4 (07:02→12:28)
[2021-10-07] MEDS ORDERED: Phenylephrine 10 MG/ML VIAL ONE (07:30)
[2021-10-07] MEDS ORDERED: ePHEDrine 50 MG/ML VIAL ONE (07:30)
[2021-10-07] MEDS ORDERED: Ropivacaine 0.5% HCl/PF (150 MG/30 ML VIAL) ONE (07:30)
[2021-10-07] MEDS ORDERED: Dexamethasone 20 MG/5 ML VIAL ONE (07:30)
[2021-10-07] MEDS ORDERED: Ketorolac Tromethamine 30 MG/ML VIAL ONE (07:30)
[2021-10-07] MEDS ORDERED: PROPOFOL 200 MG/20 ML VIAL ONE (07:30)
[2021-10-07] MEDS ORDERED: Ondansetron PF 4 MG/2 ML Vial ONE (07:30)
[2021-10-07] MEDS ORDERED: Ropivacaine 2% HCl/PF (20 MG/10 ML VIAL) ONE (07:30)
[2021-10-07] MEDS ORDERED: Fentanyl 100 MCG/2 ML VIAL IV PRN (07:40)
[2021-10-07] MEDS ORDERED: traMADol HCl 50 MG TAB PO PRN ×2 (07:45)
[2021-10-07] MEDS ORDERED: Ondansetron PF 4 MG/2 ML Vial IVP PRN (07:45)
[2021-10-07] MEDS ORDERED: HYDROcodone/Acetaminophen 10/325 mg Tablet PO PRN (07:45)
[2021-10-07] MEDS ORDERED: Ketorolac Tromethamine 30 MG/ML VIAL IVP PRN (07:45)
[2021-10-07] MEDS ORDERED: Promethazine HCl 25 MG/ML VIAL IM PRN (07:45)
[2021-10-07] MEDS ORDERED: Zolpidem Tartrate 5 MG TAB PO PRN (07:45)
[2021-10-07] MEDS ORDERED: Ropivacaine 0.2% 550 ML 550 ML NERVE BLCK SCH (07:45)
[2021-10-07] MEDS ORDERED: Albumin 5% 500 ML ONE (09:26)
[2021-10-07] MEDS ORDERED: Communication Order-Pharmacy FS PRN (10:45)
[2021-10-07] MEDS ORDERED: Ibuprofen 200 MG TAB PO PRN (10:48)
[2021-10-07] MEDS ORDERED: Morphine 4 MG/ML VIAL ONE (10:54)
[2021-10-07] MEDS: Gabapentin 300 MG CAP PO SCH ×2 (15:09→20:26)
[2021-10-07] MEDS: ceFAZolin Sodium/D5W 2 GM in Premix Bag 1 BAG IVPB SCH ×2 (15:09→23:10)
[2021-10-07] MEDS: HYDROcodone/Acetaminophen 10/325 mg Tablet PO PRN ×2 (15:11→21:47)
[2021-10-07] MEDS: Aspirin 81 mg Enteric Coated Tablet PO SCH (20:26)
[2021-10-08] MEDS: HYDROcodone/Acetaminophen 10/325 mg Tablet PO PRN ×3 (06:04→15:02)
[2021-10-08 07:43] LABS: #Eosinphils 0.1 thou/uL (0.0-0.7); #Lymphocytes 2.1 thou/uL (1.20-3.40); #Monocytes 0.6 thou/uL (0.11-0.59); #Neutrophils 4.7 thou/uL (1.40-6.50); %Basophils 0.5 % (0.0-1.0); %Eosinophils 1.1 % (0.0-10.0); %Lymphocytes 27.9 % (21.0-51.0); %Monocytes 8.1 % (0.0-10.0); %Neutrophils 62.5 % (42.0-75.0); Hemoglobin 9.1 g/dL (12.0-16.0); Mean Corpuscular Hemoglobin 28.4 pg (27.0-31.0); Mean Corpuscular Volume 88.7 fL (78.0-98.0); Mean Platelet Volume 7.5 fL (7.4-10.4); Platelet Count 205 thou/uL (130-400); RBC Distribution Width 13.3 % (11.5-14.5); Red Blood Cell (RBC) Count 3.22 mill/uL (4.20-5.40); White Blood Cell (WBC) Count 7.5 thou/uL (4.8-10.8)
[2021-10-08] MEDS ORDERED: FLUoxetine HCl 20 MG CAP PO SCH (09:00)
[2021-10-08] MEDS: Aspirin 81 mg Enteric Coated Tablet PO SCH (09:33)
[2021-10-08] MEDS: Gabapentin 300 MG CAP PO SCH ×2 (09:34→15:02)
[2021-10-08 12:12] VITALS: BP 100/63; TEMP 98.4
== END 2021-10-08 17:30 | disposition home or self-care (01) ==
LOC: EDSTATUS 10:45 → INTOOBSV 10-07 06:23 → SURG A 10-07 06:23 → SJJU 10-07 13:47
PROVIDERS: ADMIT Orthopaedic Surgery; ATTEND Orthopaedic Surgery
PROC: 0SGG07Z Fusion of Left Ankle Joint with Autologous Tissue Substitute, Open Approach (ICD-10-PCS; principal; 2021-10-07)
PROC: 0SGG04Z Fusion of Left Ankle Joint with Internal Fixation Device, Open Approach (ICD-10-PCS; 2021-10-07)
PROC: 0SGG0JZ Fusion of Left Ankle Joint with Synthetic Substitute, Open Approach (ICD-10-PCS; 2021-10-07)
PROC: 3E0T3BZ Introduction of Anesthetic Agent into Peripheral Nerves and Plexi, Percutaneous Approach (ICD-10-PCS; 2021-10-07)
DX: M96.0 Pseudarthrosis after fusion or arthrodesis (principal); M21.072 Valgus deformity, not elsewhere classified, left ankle; Z87.891 Personal history of nicotine dependence; Z79.899 Other long term (current) drug therapy; Z98.84 Bariatric surgery status; Y83.8 Other surgical procedures as the cause of abnormal reaction of the patient, or of later complication, without mention of misadventure at the time of the procedure
CPT/HCPCS: 20902; 27870; 64446; 73610; 76000; 85025; 96374; 96376; 97116; 97139; C1713 ×8; G0378 ×2; P9045; 36415; J1100; J1885; J2001; J2250; J2270; J2370; J2405; J2704; J2795; J3010; J3490

== ENCOUNTER 2022-12-28 11:13 | Emergency (ER) | payer OTHER, MEDICARE ==
[2022-12-28] MEDS ORDERED: Ketorolac Tromethamine 30 MG/ML VIAL ONE (12:43)
== END 2022-12-28 13:20 | disposition home or self-care (01) ==
LOC: ERS 11:13
DX: S22.42XA Multiple fractures of ribs, left side, initial encounter for closed fracture (principal); W01.0XXA Fall on same level from slipping, tripping and stumbling without subsequent striking against object, initial encounter; Z87.891 Personal history of nicotine dependence
CPT/HCPCS: 96372; J1885

== ENCOUNTER 2023-01-23 10:28 | Outpatient (CLI) | payer MEDICARE | END 2023-01-23 10:29 | disposition home or self-care (01) | LOC: TBSIIMAG 10:28 | PROVIDERS: ATTEND Anesthesiology Pain Medicine | DX: M47.812 Spondylosis without myelopathy or radiculopathy, cervical region (principal); M48.02 Spinal stenosis, cervical region | CPT/HCPCS: 72141 ==